=== PATIENT | male | born 1960 | race African-American/Black ===

== ENCOUNTER 2019-03-29 22:22 | Emergency (ER) | payer OTHER ==
[~2019-03-29] VITALS: Ht 162.6 cm; Wt 63.6 kg
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
[2019-03-29 23:12] LABS: BASOPHILS % (AUTO) 0 % (0-10); EOSINOPHILS % (AUTO) 2 % (0-10); HEMATOCRIT 40 % (40-54); HEMOGLOBIN 12.3 G/DL (13.3-17.7); LYMPHOCYTES % (AUTO) 19 % (12-44); MEAN CORPUSCULAR HEMOGLOBIN 21 PG (25-34); MEAN CORPUSCULAR HGB CONC 31 G/DL (32-36); MEAN CORPUSCULAR VOLUME 68 FL (80-99); MEAN PLATELET VOLUME 9.7 FL (7.4-10.4); MONOCYTES % (AUTO) 11 % (0-12); NEUTROPHILS # (AUTO) 3.4 X 10^3 (1.8-7.8); NEUTROPHILS % (AUTO) 68 % (42-75); PLATELET COUNT 285 10^3/uL (130-400); RED CELL DISTRIBUTION WIDTH 17.2 % (10.0-14.5); WHITE BLOOD COUNT 5.1 10^3/uL (4.3-11.0)
[2019-03-29 23:13] LABS: EOSINOPHILS # (AUTO) 0.1 10^3/uL (0.0-0.3); MONOCYTES # (AUTO) 0.6 X 10^3 (0.0-1.0)
[2019-03-29 23:30] LABS: ANISOCYTOSIS SLIGHT; BAND NEUTROPHILS 1 %; BASOPHILS % (MANUAL) 0 %; EOSINOPHILS % (MANUAL) 3 %; HYPOCHROMASIA MODERATE; LYMPHOCYTES % (MANUAL) 22 %; MONOCYTES % (MANUAL) 8 %; NEUTROPHILS % (MANUAL) 66 %
[2019-03-29 23:31] LABS: ALANINE AMINOTRANSFERASE 13 U/L (0-55); ALBUMIN 4.3 GM/DL (3.2-4.5); ALKALINE PHOSPHATASE 58 U/L (40-136); BILIRUBIN,TOTAL 0.2 MG/DL (0.1-1.0); BUN/CREATININE RATIO 11; CALCIUM 9.5 MG/DL (8.5-10.1); CARBON DIOXIDE 21 MMOL/L (21-32); CHLORIDE 99 MMOL/L (98-107); CREATININE SERUM 2.02 MG/DL (0.60-1.30); GFR ESTIMATED 34; GLUCOSE 110 MG/DL (70-105); MICROCYTOSIS MODERATE; POTASSIUM 3.9 MMOL/L (3.6-5.0); SODIUM 136 MMOL/L (135-145); TOTAL PROTEIN 6.8 GM/DL (6.4-8.2)
[2019-03-29 23:45] VITALS: BP 142/89
--- NOTE | 2019-03-30 06:45 | Diagnostic Imaging Report ---
INDICATION: Chest pain COMPARISON: None. FINDINGS: Single view chest demonstrates clear lungs bilaterally. The heart is normal. There is no pneumothorax. Osseous structures are normal. IMPRESSION: Negative chest. Dictated by: Dictated on workstation # [id number]
== END 2019-03-29 23:45 | disposition home or self-care (01) ==
LOC: ER FS 22:25
DX: R07.89 Other chest pain (principal); I10 Essential (primary) hypertension; F17.210 Nicotine dependence, cigarettes, uncomplicated; Y35.831A Legal intervention involving a conducted energy device, law enforcement official injured, initial encounter
CPT/HCPCS: 36415; 71045; 80053; 84484; 85007; 85027; 93005

== ENCOUNTER 2020-03-04 16:01 | Emergency (ER) | payer OTHER ==
[~2020-03-04] VITALS: Ht 167.7 cm; Wt 80.0 kg
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
[2020-03-04 16:30] LABS: HEMATOCRIT 39 % (40-54); HEMOGLOBIN 12.3 G/DL (13.3-17.7); MEAN CORPUSCULAR HEMOGLOBIN 21 PG (25-34); MEAN CORPUSCULAR HGB CONC 31 G/DL (32-36); MEAN CORPUSCULAR VOLUME 68 FL (80-99); WHITE BLOOD COUNT 4.6 10^3/uL (4.3-11.0)
[2020-03-04] MEDS ORDERED: methylPREDNISolone 125 MG (Solu-MEDROL) VIAL IM ONE (16:30)
[2020-03-04 16:31] LABS: BASOPHILS % (AUTO) 0 % (0-10); EOSINOPHILS # (AUTO) 0.1 10^3/uL (0.0-0.3); EOSINOPHILS % (AUTO) 2 % (0-10); LYMPHOCYTES # (AUTO) 1.2 X 10^3 (1.0-4.0); LYMPHOCYTES % (AUTO) 29 % (12-44); MEAN PLATELET VOLUME 10.1 FL (7.4-10.4); MONOCYTES # (AUTO) 0.5 X 10^3 (0.0-1.0); MONOCYTES % (AUTO) 10 % (0-12); NEUTROPHILS # (AUTO) 2.8 X 10^3 (1.8-7.8); NEUTROPHILS % (AUTO) 61 % (42-75); PLATELET COUNT 338 10^3/uL (130-400)
--- NOTE | 2020-03-04 16:36 | Diagnostic Imaging Report ---
INDICATION: Shortness of breath. EXAMINATION: Frontal chest obtained at 04:18 p.m. and compared to 03/29/2019. FINDINGS: Heart and mediastinal silhouette are normal in appearance. There is hyperinflation. There is no pneumothorax or pleural fluid. IMPRESSION: Hyperinflation with no acute process in the chest. Dictated by: Dictated on workstation # [id number]
[2020-03-04 16:50] LABS: FIBRIN DEGRADATION PRODUCTS 0.21 UG/ML (0.00-0.49); PROTHROMBIN TIME PATIENT 13.4 SEC (12.2-14.7)
[2020-03-04 16:56] LABS: ALANINE AMINOTRANSFERASE 17 U/L (0-55); ALKALINE PHOSPHATASE 72 U/L (40-136); BILIRUBIN,TOTAL 0.4 MG/DL (0.1-1.0); BUN/CREATININE RATIO 13; CALCIUM 9.3 MG/DL (8.5-10.1); CARBON DIOXIDE 24 MMOL/L (21-32); CHLORIDE 103 MMOL/L (98-107); CREATININE SERUM 1.44 MG/DL (0.60-1.30); GFR ESTIMATED 60; GLUCOSE 189 MG/DL (70-105); POTASSIUM 3.9 MMOL/L (3.6-5.0); SODIUM 139 MMOL/L (135-145)
[2020-03-04 16:57] LABS: ALBUMIN 4.6 GM/DL (3.2-4.5); TOTAL PROTEIN 7.6 GM/DL (6.4-8.2)
[2020-03-04] MEDS ORDERED: RT-ALBUINH IH (17:22)
[2020-03-04] MEDS ORDERED: PRD20T PO (17:22)
[2020-03-04 17:31] VITALS: BP 125/68
== END 2020-03-04 17:28 | disposition home or self-care (01) ==
LOC: EDUNIT# 16:01 → ER FS 16:02
DX: J98.01 Acute bronchospasm (principal); R06.00 Dyspnea, unspecified; N28.9 Disorder of kidney and ureter, unspecified; I25.2 Old myocardial infarction; F17.210 Nicotine dependence, cigarettes, uncomplicated
CPT/HCPCS: 36415; 71045; 80053; 83880; 84484; 85025; 85379; 85610; 85730

== ENCOUNTER 2020-07-04 13:49 | Emergency (ER) | payer SELFPAY ==
[~2020-07-04] VITALS: Ht 167.7 cm; Wt 65.7 kg
[~2020-07-04 13:49] MED LIST: PRD20T PO; RT-ALBUINH IH
[2020-07-04] MEDS: NS IV ONE ×2 (14:40→14:41)
--- NOTE | 2020-07-04 14:49 | Diagnostic Imaging Report ---
INDICATION: Cough and shortness of air. Time of exam 2:32 PM Correlation is made with prior chest 03/04/2020. The heart size is normal. The pulmonary vascularity is unremarkable. The lungs are clear. No infiltrate, effusion or pneumothorax is detected. Impression: No acute cardiopulmonary process is detected. Dictated by: Dictated on workstation # [id number]
[2020-07-04 14:51] LABS: HEMATOCRIT 41 % (40-54); HEMOGLOBIN 12.9 G/DL (13.3-17.7); MEAN CORPUSCULAR HEMOGLOBIN 21 PG (25-34); MEAN CORPUSCULAR HGB CONC 31 G/DL (32-36); MEAN CORPUSCULAR VOLUME 69 FL (80-99); WHITE BLOOD COUNT 4.4 10^3/uL (4.3-11.0)
[2020-07-04 14:52] LABS: BASOPHILS % (AUTO) 1 % (0-10); EOSINOPHILS # (AUTO) 0.4 10^3/uL (0.0-0.3); EOSINOPHILS % (AUTO) 8 % (0-10); LYMPHOCYTES % (AUTO) 24 % (12-44); MEAN PLATELET VOLUME 9.7 FL (7.4-10.4); MONOCYTES # (AUTO) 0.4 X 10^3 (0.0-1.0); MONOCYTES % (AUTO) 8 % (0-12); NEUTROPHILS # (AUTO) 2.6 X 10^3 (1.8-7.8); NEUTROPHILS % (AUTO) 59 % (42-75); PLATELET COUNT 303 10^3/uL (130-400)
[2020-07-04 15:10] LABS: BUN/CREATININE RATIO 14; CARBON DIOXIDE 28 MMOL/L (21-32); CHLORIDE 104 MMOL/L (98-107); GFR ESTIMATED > 60; POTASSIUM 4.2 MMOL/L (3.6-5.0); SODIUM 139 MMOL/L (135-145)
[2020-07-04 15:11] LABS: ALANINE AMINOTRANSFERASE 18 U/L (0-55); ALBUMIN 4.1 GM/DL (3.2-4.5); ALKALINE PHOSPHATASE 71 U/L (40-136); BILIRUBIN,TOTAL 0.3 MG/DL (0.1-1.0); CALCIUM 8.9 MG/DL (8.5-10.1); GLUCOSE 193 MG/DL (70-105); TOTAL PROTEIN 6.8 GM/DL (6.4-8.2)
--- NOTE | 2020-07-04 15:35 | ED General ---
General Chief Complaint: Respiratory Problems Stated Complaint: COUGH,SOA,FEVER Nursing Triage Note: Patient presents to ED reporting "COVID sx's". Pt reports arrested last night and having hacky productive cough so alf staff swabbed his nares and then he was released from alf just [employer] here. Patient states the [employer] drove him to ED. Pt reports he has been coughing since Wednesday, thinks he has had low grade fevers, and production of clear phlegm. Nursing Sepsis Screen: No Definite Risk Source of Information: Patient History of Present Illness Date Seen by Provider: Jul 04, 2020 Time Seen by Provider: 14:00 Initial Comments Patient is a 60-year-old -[place] male who presents with cough, sore throat, body aches and headaches for the past 3 days. Patient with low-grade temperature of 100. He was picked up by local police for allegedly having drugs in his car and tested for Covid at the alf. The patient was subsequently released after being booked due to his persistent cough. Covid results are still pending. Patient denies dizziness lightheadedness, shortness of breath, wheezing, colored phlegm production, chest pain, palpitations. Denies nausea vomiting, sweats. Reports generalized malaise and fatigue and body aches. No other acute symptoms or complaints. No medications or therapies taken prior to ED arrival. History of methamphetamine and alcohol abuse Timing/Duration: 4-5 Days Modifying Factors: improves with Other Associated Systoms: Other Allergies and Home Medications Allergies Coded Allergies: No Known Drug Allergies (Unverified , 03/29/19) Home Medications No Active Prescriptions or Reported Meds Patient Home Medication List Home Medication List Reviewed: Yes Review of Systems Review of Systems Constitutional: see HPI EENTM: see HPI Respiratory: see HPI Cardiovascular: see HPI Gastrointestinal: see HPI Musculoskeletal: see HPI Skin: see HPI Psychiatric/Neurological: See HPI Hematologic/Lymphatic: See HPI Immunological/Allergic: see HPI All Other Systems Reviewed Negative Unless Noted: Yes Past Wvrnsma-Pxfjfd-Nuwmsx Hx Past Med/Social Hx: Reviewed Nursing Past Med/Soc Hx Patient Social History Alcohol Use: Regular Use Alcohol Beverage of Choice: Whiskey Drug of Choice: Meth Smoking Status: Current Someday Smoker Type Used: Cigarettes 2nd Hand Smoke Exposure: No Recent Infectious Disease Expo: No Recent Hopitalizations: No Seasonal Allergies Seasonal Allergies: No Past Medical History Surgeries: No Respiratory: No Cardiac: Yes Heart Attack, Hypertension Neurological: No Genitourinary: No Gastrointestinal: No Musculoskeletal: No Endocrine: No HEENT: No Cancer: No Psychosocial: No Integumentary: No Blood Disorders: No Physical Exam Vital Signs Vital Signs - First Documented 07/04/20 13:57 Temp 37.1 Pulse 102 Resp 20 B/P (MAP) 156/107 (123) Pulse Ox 98 O2 Delivery Room Air Capillary Refill : Less Than 3 Seconds Height, Weight, BMI Height: '" Weight: lbs. oz. kg; 23.00 BMI Method: General Appearance: Other (Fatigued and weak appearing) Eyes: Bilateral Eye Normal Inspection, Bilateral Eye PERRL, Bilateral Eye EOMI HEENT: PERRL/EOMI, Pharynx Normal, Moist Mucous Membranes Neck: Non Tender, Supple Respiratory: Chest Non Tender, Normal Breath Sounds, Rhonci Cardiovascular: Regular Rate, Rhythm, No Edema Gastrointestinal: Non Tender, Soft Extremity: Normal Capillary Refill Neurologic/Psychiatric: Alert, Oriented x3, Normal Mood/Affect, bioinformaticist II-XII Norm as Tested Lymphatic: No Adenopathy Focused Exam Lactate Level 07/04/20 14:30: Lactic Acid Level 1.43 Lactic Acid Level Laboratory Tests Test 07/04/20 14:30 Lactic Acid Level 1.43 MMOL/L (0.50-2.00) Progress/Results/Core Measures Suspected Sepsis Recent Fever Within 48 Hours: No Infection Criteria Present: Suspected New Infection New/Unexplained Altered Menta: No Sepsis Screen: No Definite Risk SIRS Temperature: Pulse: 102 Respiratory Rate: 20 Laboratory Tests 07/04/20 14:30: White Blood Count 4.4 Blood Pressure 156 /107 Mean: 123 07/04/20 14:30: Lactic Acid Level 1.43 Laboratory Tests 07/04/20 14:30: Creatinine 1.00, Platelet Count 303, Total Bilirubin 0.3 Results/Orders Lab Results Laboratory Tests Test 07/04/20 14:30 Range/Units White Blood Count 4.4 4.3-11.0 10^3/uL Red Blood Count 6.01 H 4.35-5.85 10^6/uL Hemoglobin 12.9 L 13.3-17.7 G/DL Hematocrit 41 40-54 % Mean Corpuscular Volume 69 L 80-99 FL Mean Corpuscular Hemoglobin 21 L 25-34 PG Mean Corpuscular Hemoglobin Concent 31 L 32-36 G/DL Red Cell Distribution Width 15.1 H 10.0-14.5 % Platelet Count 303 130-400 10^3/uL Mean Platelet Volume 9.7 7.4-10.4 FL Immature Granulocyte % (Auto) 0 % Neutrophils (%) (Auto) 59 42-75 % Lymphocytes (%) (Auto) 24 12-44 % Monocytes (%) (Auto) 8 0-12 % Eosinophils (%) (Auto) 8 0-10 % Basophils (%) (Auto) 1 0-10 % Neutrophils # (Auto) 2.6 1.8-7.8 X 10^3 Lymphocytes # (Auto) 1.0 1.0-4.0 X 10^3 Monocytes # (Auto) 0.4 0.0-1.0 X 10^3 Eosinophils # (Auto) 0.4 H 0.0-0.3 10^3/uL Basophils # (Auto) 0.0 0.0-0.1 10^3/uL Immature Granulocyte # (Auto) 0.0 0.0-0.1 10^3/uL Sodium Level 139 135-145 MMOL/L Potassium Level 4.2 3.6-5.0 MMOL/L Chloride Level 104 98-107 MMOL/L Carbon Dioxide Level 28 21-32 MMOL/L Anion Gap 7 5-14 MMOL/L Blood Urea Nitrogen 14 7-18 MG/DL Creatinine 1.00 0.60-1.30 MG/DL Estimat Glomerular Filtration Rate > 60 BUN/Creatinine Ratio 14 Glucose Level 193 H 70-105 MG/DL Lactic Acid Level 1.43 0.50-2.00 MMOL/L Calcium Level 8.9 8.5-10.1 MG/DL Corrected Calcium 8.8 8.5-10.1 MG/DL Total Bilirubin 0.3 0.1-1.0 MG/DL Aspartate Amino Transf (AST/SGOT) 24 5-34 U/L Alanine Aminotransferase (ALT/SGPT) 18 0-55 U/L Alkaline Phosphatase 71 40-136 U/L Total Protein 6.8 6.4-8.2 GM/DL Albumin 4.1 3.2-4.5 GM/DL My Orders Aleta - LIZZETTE ARRIOLA DO Cbc With Automated Diff (07/04/20 14:22) Comprehensive Metabolic Panel (07/04/20 14:22) Blood Culture (07/04/20 14:22) Urinalysis (07/04/20 14:22) Urine Culture (07/04/20 14:22) Chest 1 View Ap/Pa Only (07/04/20 14:22) Ed Iv/Invasive Line Start (07/04/20 14:22) Ed Iv/Invasive Line Start (07/04/20 14:22) Vital Signs Adult Sepsis Patie Q15M (07/04/20 14:22) O2 (07/04/20 14:22) Remove Rings In Anticipation O (07/04/20 14:22) Lactic Acid Analyzer (07/04/20 14:22) Ns Iv 1000 Ml (Sodium Chloride 0.9%) (07/04/20 14:30) Medications Given in ED Current Medications Medications Dose Ordered Sig/Hector Route Start Time Stop Time Status Last Admin Dose Admin Sodium Chloride 1,971 ml @ 1,971 mls/hr ONCE ONCE IV 07/04/20 14:30 07/04/20 15:29 07/04/20 14:40 1,971 MLS/HR Vital Signs/I&O 07/04/20 13:57 Temp 37.1 Pulse 102 Resp 20 B/P (MAP) 156/107 (123) Pulse Ox 98 O2 Delivery Room Air Capillary Refill : Less Than 3 Seconds Blood Pressure Mean: 123 Departure Communication (Admissions) Chest x-ray: No acute cardiopulmonary disease per radiology report. Patient with nonspecific URI symptoms concerning for possible Covid or influenza. No respiratory compromise. Stable vital signs with the exception of longstanding untreated hypertension. Patient is unsure of which medications he is on because he does not take them. Will prescribe lisinopril with PCP follow- up. Work note offered. Recommendations are for watchful waiting, close monitoring and PCP follow-up early next week after symptoms resolved. Return precautions reviewed. Patient verbalizes understanding agreement discharge instructions prior to departure Impression Primary Impression: Viral syndrome Additional Impressions: Hypertension H/O medication noncompliance Disposition: HOME, SELF-CARE Condition: Stable Departure-Patient Inst. Decision time for Depature: 15:35 Referrals: NO,LOCAL PHYSICIAN (PCP/Family) Primary Care Physician Patient Instructions: Viral Upper Respiratory Infection, Adult (DC), High Blood Pressure (DC) Add. Discharge Instructions: You were evaluated in the emergency department for flulike symptoms with body aches. His symptoms are consistent with Covid. Please stay home and follow strict quarantine pending Covid results from local alf. In the meantime, take Mucinex 1200 mg twice daily and start taking lisinopril for treatment of hypertension. Follow-up with your PCP in 7 to 8 days for reevaluation. Return to the ED if new or worsening symptoms. All discharge instructions reviewed with patient and/or family. Voiced understanding. Scripts Guaifenesin (Mucinex) 1,200 Mg Tab.er.12h 1200 MG PO BID, #20 TAB Prov: LIZZETTE ARRIOLA DO 07/04/20 Lisinopril (Lisinopril) 20 Mg Tablet 20 MG PO DAILY, #30 TAB Prov: LIZZETTE ARRIOLA DO 07/04/20 LIZZETTE ARRIOLA DO Jul 04, 2020 15:35
[2020-07-04] MEDS ORDERED: LISI20TA26 PO (15:37)
[2020-07-04] MEDS ORDERED: GUAI120013 PO (15:38)
[2020-07-04 15:40] VITALS: BP 160/114
== END 2020-07-04 15:40 | disposition home or self-care (01) ==
LOC: EDUNIT# 13:49 → ER FS 13:52
DX: B34.9 Viral infection, unspecified (principal); I10 Essential (primary) hypertension; I25.2 Old myocardial infarction; F17.210 Nicotine dependence, cigarettes, uncomplicated; Z91.19 Patient's noncompliance with other medical treatment and regimen
CPT/HCPCS: 36415; 71045; 80053; 83605; 85025; 87040

== ENCOUNTER → 2020-07-08 | Outpatient (CLI) | payer SELFPAY ==
[~2020-07-08] MED LIST changes: +GUAI120013 PO; +LISI20TA26 PO
[2020-07-08 10:40] LABS: HEMATOCRIT 43 % (40-54); HEMOGLOBIN 13.1 G/DL (13.3-17.7); MEAN CORPUSCULAR HEMOGLOBIN 21 PG (25-34); MEAN CORPUSCULAR HGB CONC 31 G/DL (32-36); MEAN CORPUSCULAR VOLUME 70 FL (80-99); WHITE BLOOD COUNT 3.6 10^3/uL (4.3-11.0)
[2020-07-08 10:41] LABS: BASOPHILS % (AUTO) 1 % (0-10); EOSINOPHILS # (AUTO) 0.4 10^3/uL (0.0-0.3); EOSINOPHILS % (AUTO) 10 % (0-10); LYMPHOCYTES % (AUTO) 29 % (12-44); MEAN PLATELET VOLUME 9.6 FL (7.4-10.4); MONOCYTES # (AUTO) 0.4 X 10^3 (0.0-1.0); MONOCYTES % (AUTO) 10 % (0-12); NEUTROPHILS # (AUTO) 1.8 X 10^3 (1.8-7.8); NEUTROPHILS % (AUTO) 50 % (42-75); PLATELET COUNT 302 10^3/uL (130-400)
[2020-07-08 11:36] LABS: ALANINE AMINOTRANSFERASE 26 U/L (0-55); ALBUMIN 4.2 GM/DL (3.2-4.5); ALKALINE PHOSPHATASE 70 U/L (40-136); BILIRUBIN,TOTAL 0.4 MG/DL (0.1-1.0); BUN/CREATININE RATIO 13; CALCIUM 8.9 MG/DL (8.5-10.1); CARBON DIOXIDE 26 MMOL/L (21-32); CHLORIDE 102 MMOL/L (98-107); CREATININE SERUM 1.01 MG/DL (0.60-1.30); GFR ESTIMATED > 60; GLUCOSE 154 MG/DL (70-105); POTASSIUM 3.9 MMOL/L (3.6-5.0); SODIUM 139 MMOL/L (135-145); TOTAL PROTEIN 6.8 GM/DL (6.4-8.2)
== END ==
LOC: LAB FS 10:07
PROVIDERS: ATTEND Nurse Practitioner Family
DX: Z87.898 Personal history of other specified conditions (principal)
CPT/HCPCS: 36415; 80053; 83880; 84484; 85025

== ENCOUNTER 2020-08-18 08:13 | Emergency (ER) | payer SELFPAY ==
[~2020-08-18] VITALS: Ht 175 cm; Wt 72.0 kg
[2020-08-18] MEDS ORDERED: methylPREDNISolone 125 MG (Solu-MEDROL) VIAL IVP STA (08:28)
[2020-08-18] MEDS ORDERED: RT-ALBUTEROL/IPRATROPIUM 3 ML (DUONEB) VIAL INH STA (08:28)
[2020-08-18] MEDS ORDERED: KETOROLAC 30 MG/ML VIAL IVP STA (08:32)
[2020-08-18 08:38] LABS: BASOPHILS % (AUTO) 1 % (0-10); EOSINOPHILS # (AUTO) 0.4 10^3/uL (0.0-0.3); EOSINOPHILS % (AUTO) 10 % (0-10); HEMATOCRIT 40 % (40-54); HEMOGLOBIN 12.7 G/DL (13.3-17.7); LYMPHOCYTES # (AUTO) 1.2 X 10^3 (1.0-4.0); LYMPHOCYTES % (AUTO) 29 % (12-44); MEAN CORPUSCULAR HEMOGLOBIN 22 PG (25-34); MEAN CORPUSCULAR HGB CONC 31 G/DL (32-36); MEAN CORPUSCULAR VOLUME 69 FL (80-99); MEAN PLATELET VOLUME 9.3 FL (7.4-10.4); MONOCYTES # (AUTO) 0.4 X 10^3 (0.0-1.0); MONOCYTES % (AUTO) 10 % (0-12); NEUTROPHILS # (AUTO) 2.2 X 10^3 (1.8-7.8); NEUTROPHILS % (AUTO) 50 % (42-75); PLATELET COUNT 311 10^3/uL (130-400); WHITE BLOOD COUNT 4.3 10^3/uL (4.3-11.0)
--- NOTE | 2020-08-18 08:40 | ED Dyspnea ---
General Chief Complaint: Respiratory Problems Stated Complaint: SOB Nursing Triage Note: PT REPORTS HE BECAME SHORT OF BREATH LAST PM AFTER WORKING. HE HAS A HX OF ASTHMA AND HAS AN INHALER. 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 SATS WERE 97% PRIOR TO THE B/T. REPORTS HE HAS BEEN COUGHING LATELY AND SPITTING UP PHLEGM. Source of Information: Patient History of Present Illness Date Seen by Provider: Aug 18, 2020 Time Seen by Provider: 08:19 Initial Comments 60-year-old male presenting by EMS from home having complaints of short of breath and cough. He states since last night he has been coughing and feeling more short of breath. He ran out of his inhaler last night. He reports a history of asthma and breathing problems. He also has high blood pressure. He follows with nurse practitioner Federico from [facility]. He denies fever or chills, chest pain, nausea, vomiting, abdominal pain, body aches. He does have a headache. He has been coughing up some phlegm but only occasionally been able to spit it out. He states he was having troubles all night but then this morning decided to call 911. Timing/Duration: Waxing and Waning, Other (Since last night) Severity: Moderate Activities at Onset: None Prior Episodes/Possible Cause: Chronic Episodes Modifying Factors: Improves With Albuterol Inhaler (Ran out of his inhaler without), Improves With Albuterol Nebulizer (Treatment by EMS helped); Worse With Coughing Associated Symptoms: Cough Allergies and Home Medications Allergies Coded Allergies: No Known Drug Allergies (Unverified , 03/29/19) Home Medications Albuterol Sulfate 1 Puff Puff, 2 PUFF IH Q4H PRN for SHORTNESS OF BREATH 1 PUFF = 90 MCG Prescribed by: NESTOR MILLS on 08/18/20927 Azithromycin 250 Mg Tablet, 250 MG PO DAILY Prescribed by: NESTOR MILLS on 08/18/20927 Guaifenesin 1,200 Mg Tab.er.12h, 1,200 MG PO BID Prescribed by: LIZZETTE ARRIOLA on 07/04/201537 Lisinopril 20 Mg Tablet, 20 MG PO DAILY Prescribed by: LIZZETTE ARRIOLA on 07/04/20 153 Prednisone 20 Mg Tab, 40 MG PO DAILY Prescribed by: NESTOR MILLS on 08/18/20927 Patient Home Medication List Home Medication List Reviewed: Yes Review of Systems Review of Systems Constitutional: No chills, No fever EENTM: nose congestion Respiratory: see HPI, cough, phlegm, short of breath; No stridor; wheezing Cardiovascular: No chest pain, No edema Gastrointestinal: No nausea, No vomiting Genitourinary: No dysuria Musculoskeletal: No joint pain, No muscle pain Skin: No rash Psychiatric/Neurological: Headache; Denies Numbness, Denies Paresthesia Hematologic/Lymphatic: Denies Blood Clots Past Apdbknh-Hpdqfk-Hqivqn Hx Past Med/Social Hx: Reviewed Nursing Past Med/Soc Hx Patient Social History Alcohol Use: Occasionally Uses Number of Drinks Today: GG Alcohol Beverage of Choice: Whiskey Drug of Choice: Meth Hx Type Used: Cigarettes 2nd Hand Smoke Exposure: No Recent Infectious Disease Expo: No Recent Hopitalizations: No Seasonal Allergies Seasonal Allergies: No Past Medical History Surgeries: No Respiratory: No Cardiac: Yes Heart Attack, Hypertension Neurological: No Genitourinary: No Gastrointestinal: No Musculoskeletal: No Endocrine: No HEENT: No Cancer: No Psychosocial: No Integumentary: No Blood Disorders: No Physical Exam Vital Signs Vital Signs - First Documented 08/18/20 08:20 Temp 37.0 Pulse 85 Resp 20 B/P (MAP) 125/87 (100) Pulse Ox 95 O2 Delivery Room Air Capillary Refill : Less Than 3 Seconds Height, Weight, BMI Height: '" Weight: lbs. oz. kg; 23.00 BMI Method: General Appearance: No Apparent Distress, WD/WN HEENT: PERRL/EOMI, Pharynx Normal Neck: Full Range of Motion, Normal Inspection, Non Tender, Supple Respiratory: Chest Non Tender, No Accessory Muscle Use, No Respiratory Distress, Decreased Breath Sounds, Rhonci; No Stridor; Wheezing Cardiovascular: Regular Rate, Rhythm, No Murmur, Normal Peripheral Pulses Gastrointestinal: Normal Bowel Sounds, No Pulsatile Mass, Non Tender, Soft Rectal: Deferred Extremity: Normal Capillary Refill, Normal Inspection, Normal Range of Motion, Non Tender, No Pedal Edema Neurologic/Psychiatric: Alert, Oriented x3, No Motor/Sensory Deficits Skin: Normal Color, Warm/Dry Progress/Results/Core Measures Results/Orders Lab Results Laboratory Tests Test 08/18/20 08:20 Range/Units White Blood Count 4.3 4.3-11.0 10^3/uL Red Blood Count 5.85 4.35-5.85 10^6/uL Hemoglobin 12.7 L 13.3-17.7 G/DL Hematocrit 40 40-54 % Mean Corpuscular Volume 69 L 80-99 FL Mean Corpuscular Hemoglobin 22 L 25-34 PG Mean Corpuscular Hemoglobin Concent 31 L 32-36 G/DL Red Cell Distribution Width 16.6 H 10.0-14.5 % Platelet Count 311 130-400 10^3/uL Mean Platelet Volume 9.3 7.4-10.4 FL Immature Granulocyte % (Auto) 0 % Neutrophils (%) (Auto) 50 42-75 % Lymphocytes (%) (Auto) 29 12-44 % Monocytes (%) (Auto) 10 0-12 % Eosinophils (%) (Auto) 10 0-10 % Basophils (%) (Auto) 1 0-10 % Neutrophils # (Auto) 2.2 1.8-7.8 X 10^3 Lymphocytes # (Auto) 1.2 1.0-4.0 X 10^3 Monocytes # (Auto) 0.4 0.0-1.0 X 10^3 Eosinophils # (Auto) 0.4 H 0.0-0.3 10^3/uL Basophils # (Auto) 0.0 0.0-0.1 10^3/uL Immature Granulocyte # (Auto) 0.0 0.0-0.1 10^3/uL Sodium Level 138 135-145 MMOL/L Potassium Level 3.8 3.6-5.0 MMOL/L Chloride Level 103 98-107 MMOL/L Carbon Dioxide Level 27 21-32 MMOL/L Anion Gap 8 5-14 MMOL/L Blood Urea Nitrogen 11 7-18 MG/DL Creatinine 0.94 0.60-1.30 MG/DL Estimat Glomerular Filtration Rate > 60 BUN/Creatinine Ratio 12 Glucose Level 119 H 70-105 MG/DL Calcium Level 9.0 8.5-10.1 MG/DL Corrected Calcium 8.8 8.5-10.1 MG/DL Total Bilirubin 0.3 0.1-1.0 MG/DL Aspartate Amino Transf (AST/SGOT) 27 5-34 U/L Alanine Aminotransferase (ALT/SGPT) 20 0-55 U/L Alkaline Phosphatase 71 40-136 U/L C-Reactive Protein < 0.30 <0.50 MG/DL Total Protein 7.0 6.4-8.2 GM/DL Albumin 4.2 3.2-4.5 GM/DL My Orders Orders - NESTOR MILLS MD Cbc With Automated Diff (08/18/20 08:28) Comprehensive Metabolic Panel (08/18/20 08:28) Chest 1 View Ap/Pa Only (08/18/20 08:28) Ed Iv/Invasive Line Start (08/18/20 08:28) Sputum Culture (08/18/20 08:28) Monitor-Rhythm Ecg Trace Only (08/18/20 08:28) Crp Fs (08/18/20 08:28) Methylprednisolone Sod Succ (Solu-Medrol (08/18/20 08:28) Albuterol/Ipra Inhalation Soln (Duoneb I (08/18/20 08:28) Svn Small Volume Nebulizer (08/18/20 08:28) Ketorolac Injection (Toradol Injection) (08/18/20 08:32) Ceftriaxone For Iv Use (Rocephin For I (08/18/20 09:19) Azithromycin Tablet (Zithromax Tablet) (08/18/20 09:19) Vital Signs/I&O 08/18/20 08/18/20 08/18/20 08:20 08:35 09:30 Temp 37.0 37.0 37.0 Pulse 85 72 Resp 20 20 B/P (MAP) 125/87 (100) 132/86 (100) Pulse Ox 95 96 O2 Delivery Room Air Room Air Blood Pressure Mean: 100 Progress Progress Note #1: Progress Note Obtain basic labs as well as chest x-ray to evaluate for infiltrate or pneumonia. With him running out of his inhaler and working so much this weekend with "good old days" going on this weekend in [place] he likely has been exposed to more allergens. There is also been a weather change. Since he has no fever or chills and no chest pain this is unlikely to be a severe infection. However with him being a smoker he is at risk for atypical infections. For his headache will give a dose of Toradol, Solu-Medrol for his wheezing and rhonchi, a repeat breathing treatment for his shortness of breath. Differential diagnosis includes asthma exacerbation, pneumonia, medication noncompliance, tobacco abuse, bronchitis, allergic rhinitis. Progress Note #2: Time: 08:52 Progress Note CBC stable without acute significant change from prior studies. Chest x-ray shows bibasilar atelectasis or infiltrate new from prior imaging. Progress Note #3: Time: 09:09 Progress Note Chemistry stable without acute significant abnormality and CRP <0.3. With smoking history and having atelectasis vs developing infiltrates will treat with antibiotic and refill inhaler. Counseled to quit smoking and follow up with clinic. Diagnostic Imaging Diagonstic Imaging: Xray Plain Films/CT/US/NM/MRI: chest Comments NAME: [facility]GL[facility]ARRANZA [facility] REC#: [id number] PT STATUS: REG ER : 1960 PHYSICIAN: NESTOR MILLS MD ADMIT DATE: 08/18/20/ER FS Draft Date of Exam:08/18/20 CHEST 1 VIEW AP/PA ONLY EXAM: CHEST 1 VIEW AP/PA ONLY INDICATION: Cough. Shortness of breath. COMPARISON: Chest radiograph 07/04/2020. FINDINGS: Normal heart size and central pulmonary vascularity. Subtle airspace opacities in the lung bases. No pleural effusion or pneumothorax. No acute osseous findings. IMPRESSION: Mild atelectasis or infiltrate in the lung bases is new since the prior. Dictated on workstation # [id number] Dict: 08/18/20 0838 Trans: 08/18/20 0848 ONEIDA [id number] Interpreted by: SUSAN WHALEN MD Electronically signed by: Reviewed: Reviewed by Me Departure Impression Primary Impression: Basal pneumonia Additional Impressions: Shortness of breath Cough in adult Tobacco abuse RBC microcytosis Disposition: HOME, SELF-CARE Condition: Stable Departure-Patient Inst. Decision time for Depature: 09:25 Referrals: [facility] (PCP/Family) Primary Care Physician Patient Instructions: Pneumonia, Adult ED, Cough, Adult ED, Quitting Smoking Add. Discharge Instructions: Take antibiotic until gone to treat for infection in lungs. Stop smoking to help with your breathing Follow up with clinic to refill medicines and ensure your lungs are improving after treatment for infection. Consider taking an iron supplement or multivitamin with iron to help improve your blood count. The clinic may want to do other testing or evaluation for the small size of your red blood cells. Sometimes this is from low vitamins or iron levels but they may want to look for specific cause. All discharge instructions reviewed with patient and/or family. Voiced understanding. Scripts Albuterol Sulfate (PROAIR HFA) 1 Puff Puff 2 PUFF IH Q4H PRN for SHORTNESS OF BREATH for 30 Days, #1 INHALER 0 Refills 1 PUFF = 90 MCG Prov: NESTOR MILLS MD 08/18/20 Prednisone (Prednisone) 20 Mg Tab 40 MG PO DAILY for 5 Days, #10 TAB 0 Refills Prov: NESTOR MILLS MD 08/18/20 Azithromycin (Azithromycin) 250 Mg Tablet 250 MG PO DAILY for pneumonia for 4 Days, #4 TAB 0 Refills Prov: NESTOR MILLS MD 08/18/20 NESTOR MILLS MD Aug 18, 2020 08:40
--- NOTE | 2020-08-18 08:50 | Diagnostic Imaging Report ---
EXAM: CHEST 1 VIEW AP/PA ONLY INDICATION: Cough. Shortness of breath. COMPARISON: Chest radiograph 07/04/2020. FINDINGS: Normal heart size and central pulmonary vascularity. Subtle airspace opacities in the lung bases. No pleural effusion or pneumothorax. No acute osseous findings. IMPRESSION: Mild atelectasis or infiltrate in the lung bases is new since the prior. Dictated by: Dictated on workstation # [id number]
[2020-08-18 08:52] LABS: CARBON DIOXIDE 27 MMOL/L (21-32); CHLORIDE 103 MMOL/L (98-107); POTASSIUM 3.8 MMOL/L (3.6-5.0); SODIUM 138 MMOL/L (135-145)
[2020-08-18 08:53] LABS: ALANINE AMINOTRANSFERASE 20 U/L (0-55); ALBUMIN 4.2 GM/DL (3.2-4.5); ALKALINE PHOSPHATASE 71 U/L (40-136); BILIRUBIN,TOTAL 0.3 MG/DL (0.1-1.0); BUN/CREATININE RATIO 12; CREATININE SERUM 0.94 MG/DL (0.60-1.30); GFR ESTIMATED > 60; GLUCOSE 119 MG/DL (70-105)
[2020-08-18] MEDS ORDERED: cefTRIAXone FOR IV USE 1,000 MG in WATER (STERILE) FOR INJECTION 10 ML IV STA (09:19)
[2020-08-18] MEDS ORDERED: AZITHROMYCIN 250 MG TAB (ZITHROMAX) PO STA (09:19)
[2020-08-18] MEDS ORDERED: RT-ALBUINH IH ×2 (09:27→09:28)
[2020-08-18] MEDS ORDERED: AZIT250T12 PO ×2 (09:27→09:28)
[2020-08-18] MEDS ORDERED: PRD20T PO ×2 (09:27→09:28)
[2020-08-18 09:30] VITALS: BP 132/86
== END 2020-08-18 09:32 | disposition home or self-care (01) ==
LOC: EDUNIT# 08:13 → ER FS 08:19
DX: J18.9 Pneumonia, unspecified organism (principal); R06.02 Shortness of breath; R05 Cough; F17.200 Nicotine dependence, unspecified, uncomplicated; R71.8 Other abnormality of red blood cells; I25.2 Old myocardial infarction; I10 Essential (primary) hypertension; Z79.52 Long term (current) use of systemic steroids; Z79.899 Other long term (current) drug therapy
CPT/HCPCS: 36415; 71045; 80053; 85025; 86141; 93041

== ENCOUNTER → 2020-10-04 | Outpatient (CLI) | payer SELFPAY ==
[~2020-10-04] MED LIST changes: +AZIT250T12 PO
--- NOTE | 2020-10-04 18:29 | Diagnostic Imaging Report ---
EXAMINATION: Chest 2 view HISTORY: COMMUNITY AQUIRED PNEUMONIA COMPARISON: 08/18/2020 FINDINGS: Heart size and pulmonary vasculature are normal. The lungs are clear without consolidation, pleural effusion, or pneumothorax. The osseous structures are intact. IMPRESSION: 1. No acute radiographic abnormality in the chest. Dictated by: Dictated on workstation # [id number]
== END ==
LOC: RAD FS 17:56
PROVIDERS: ATTEND Nurse Practitioner Family
DX: J18.9 Pneumonia, unspecified organism (principal)
CPT/HCPCS: 71046

== ENCOUNTER 2021-03-20 05:20 | Inpatient (IN) | payer SELFPAY ==
[~2021-03-20] VITALS: Ht 167.7 cm; Wt 72.0 kg
[2021-03-20] MEDS ORDERED: methylPREDNISolone 125 MG (Solu-MEDROL) VIAL IVP ONE (05:30)
[2021-03-20] MEDS ORDERED: RT-ALBUTEROL/IPRATROPIUM 3 ML (DUONEB) VIAL INH ONE (05:30)
[2021-03-20 05:58] LABS: HEMATOCRIT 43 % (40-54); HEMOGLOBIN 13.1 g/dL (13.3-17.7); MEAN CORPUSCULAR HEMOGLOBIN 22 pg (25-34); MEAN CORPUSCULAR HGB CONC 30 g/dL (32-36); MEAN CORPUSCULAR VOLUME 71 fL (80-99); WHITE BLOOD COUNT 5.5 10^3/uL (4.3-11.0)
--- NOTE | 2021-03-20 05:58 | Diagnostic Imaging Report ---
INDICATION: Chest pain. Cough. COMPARISON: 10/04/2020 FINDINGS: Two frontal radiographic views of the chest were obtained and demonstrate normal heart size and pulmonary vascularity. The lungs are well aerated and clear. No large pleural effusion or pneumothorax is seen. The visualized osseous structures show no acute abnormalities. IMPRESSION: 1. No acute cardiopulmonary process. Dictated by: Dictated on workstation # [id number]
[2021-03-20 05:59] LABS: BASOPHILS % (AUTO) 0 % (0-10); EOSINOPHILS # (AUTO) 0.1 10^3/uL (0.0-0.3); EOSINOPHILS % (AUTO) 2 % (0-10); LYMPHOCYTES # (AUTO) 0.6 X 10^3 (1.0-4.0); LYMPHOCYTES % (AUTO) 11 % (12-44); MEAN PLATELET VOLUME 9.6 fL (9.0-12.2); MONOCYTES # (AUTO) 0.4 X 10^3 (0.0-1.0); MONOCYTES % (AUTO) 8 % (0-12); NEUTROPHILS # (AUTO) 4.2 X 10^3 (1.8-7.8); NEUTROPHILS % (AUTO) 78 % (42-75); PLATELET COUNT 317 10^3/uL (130-400)
[2021-03-20] MEDS ORDERED: HYDROcodone/APAP 5 MG/325 MG (LORTAB) TAB PO ONE (06:15)
[2021-03-20 06:17] LABS: BUN/CREATININE RATIO 9; CALCIUM 8.6 MG/DL (8.5-10.1); CARBON DIOXIDE 26 MMOL/L (21-32); CHLORIDE 101 MMOL/L (98-107); CREATININE SERUM 1.02 MG/DL (0.60-1.30); GFR ESTIMATED 90; GLUCOSE 161 MG/DL (70-105); POTASSIUM 3.3 MMOL/L (3.6-5.0); SODIUM 138 MMOL/L (135-145)
[2021-03-20 06:18] LABS: ALANINE AMINOTRANSFERASE 20 U/L (0-55); ALBUMIN 4.5 GM/DL (3.2-4.5); ALKALINE PHOSPHATASE 108 U/L (40-136); TOTAL PROTEIN 7.5 GM/DL (6.4-8.2)
[2021-03-20 06:19] LABS: BILIRUBIN,TOTAL < 0.2 MG/DL (0.1-1.0)
--- NOTE | 2021-03-20 06:32 | ED Respiratory ---
General Chief Complaint: Respiratory Problems Stated Complaint: COPD EXACERBATION Source: patient Exam Limitations: no limitations History of Present Illness Date Seen by Provider: Mar 20, 2021 Time Seen by Provider: 05:45 Initial Comments Patient is a 60-year-old -[place] male with history of COPD presents with acute shortness of breath and coughing episode starting 2 days ago. Patient noted be hypoxic on EMS arrival requiring 3 L of oxygen to meet sa turation greater than 90%. No fever chills, nausea vomiting or sweats. Reports chest tightness and headache secondary to cough. Patient had Covid several months ago and states his symptoms feel similar. He has previously been prescribed oxygen for home use which he never obtained. He is a current half pack a day smoker. Timing/Duration: yesterday Severity: moderate Prior Episodes/Possible Cause: other Modifying Factors: Improves With Other Associated Symptoms: other Allergies and Home Medications Allergies Coded Allergies: No Known Drug Allergies (Unverified , 03/29/19) Patient Home Medication List Home Medication List Reviewed: Yes Albuterol Sulfate (Proair Hfa) 1 Puff Puff, 2 PUFF IH Q4H PRN for SHORTNESS OF BREATH Prescribed by: NESTOR MILLS on 08/18/20927 Azithromycin (Azithromycin) 250 Mg Tablet, 250 MG PO DAILY Prescribed by: NESTOR MILLS on 08/18/20927 Guaifenesin (Mucinex) 1,200 Mg Tab.er.12h, 1,200 MG PO BID Prescribed by: LIZZETTE ARRIOLA on 07/04/20 153 Lisinopril (Lisinopril) 20 Mg Tablet, 20 MG PO DAILY Prescribed by: LIZZETTE ARRIOLA on 07/04/20 153 Prednisone (Prednisone) 20 Mg Tab, 40 MG PO DAILY Prescribed by: NESTOR MILLS on 08/18/20927 Review of Systems Review of Systems Constitutional: see HPI EENTM: see HPI Respiratory: see HPI Cardiovascular: see HPI Gastrointestinal: see HPI Genitourinary: see HPI Musculoskeletal: see HPI Skin: see HPI Psychiatric/Neurological: See HPI Hematologic/Lymphatic: See HPI Immunological/Allergic: see HPI Past Jfuoops-Nogyms-Blzihr Hx Patient Social History Tobacco Use?: Yes Seasonal Allergies Seasonal Allergies: No Past Medical History Surgeries: No Respiratory: No Cardiac: Yes Heart Attack, Hypertension Neurological: No Genitourinary: No Gastrointestinal: No Musculoskeletal: No Endocrine: No HEENT: No Cancer: No Psychosocial: No Integumentary: No Blood Disorders: No Physical Exam Capillary Refill : Height: '" Weight: lbs. oz. kg; 23.00 BMI Method: General Appearance: mild distress Eyes: Bilateral Eye Normal Inspection, Bilateral Eye PERRL, Bilateral Eye EOMI HEENT: PERRL/EOMI Neck: non-tender, full range of motion, supple Respiratory: chest non-tender, decreased breath sounds, rhonchi Cardiovascular: normal peripheral pulses, regular rate, rhythm Gastrointestinal: non tender, soft Extremities: non-tender Neurologic/Psychiatric: living supervisor II-XII nml as tested, alert, oriented x 3 Skin: normal color Focused Exam Sepsis Stage: Ruled Out Progress/Results/Core Measures Suspected Sepsis SIRS Temperature: Pulse: Respiratory Rate: Laboratory Tests 03/20/21 05:30: White Blood Count 5.5 Blood Pressure / Mean: Laboratory Tests 03/20/21 05:30: Creatinine 1.02, Platelet Count 317, Total Bilirubin < 0.2 Results/Orders Lab Results Laboratory Tests Test 03/20/21 05:30 Range/Units White Blood Count 5.5 4.3-11.0 10^3/uL Red Blood Count 6.08 H 4.30-5.52 10^6/uL Hemoglobin 13.1 L 13.3-17.7 g/dL Hematocrit 43 40-54 % Mean Corpuscular Volume 71 L 80-99 fL Mean Corpuscular Hemoglobin 22 L 25-34 pg Mean Corpuscular Hemoglobin Concent 30 L 32-36 g/dL Red Cell Distribution Width 15.4 H 10.0-14.5 % Platelet Count 317 130-400 10^3/uL Mean Platelet Volume 9.6 9.0-12.2 fL Immature Granulocyte % (Auto) 0 % Neutrophils (%) (Auto) 78 H 42-75 % Lymphocytes (%) (Auto) 11 L 12-44 % Monocytes (%) (Auto) 8 0-12 % Eosinophils (%) (Auto) 2 0-10 % Basophils (%) (Auto) 0 0-10 % Neutrophils # (Auto) 4.2 1.8-7.8 X 10^3 Lymphocytes # (Auto) 0.6 L 1.0-4.0 X 10^3 Monocytes # (Auto) 0.4 0.0-1.0 X 10^3 Eosinophils # (Auto) 0.1 0.0-0.3 10^3/uL Basophils # (Auto) 0.0 0.0-0.1 10^3/uL Immature Granulocyte # (Auto) 0.0 0.0-0.1 10^3/uL Sodium Level 138 135-145 MMOL/L Potassium Level 3.3 L 3.6-5.0 MMOL/L Chloride Level 101 98-107 MMOL/L Carbon Dioxide Level 26 21-32 MMOL/L Anion Gap 11 5-14 MMOL/L Blood Urea Nitrogen 9 7-18 MG/DL Creatinine 1.02 0.60-1.30 MG/DL Estimat Glomerular Filtration Rate 90 BUN/Creatinine Ratio 9 Glucose Level 161 H 70-105 MG/DL Calcium Level 8.6 8.5-10.1 MG/DL Corrected Calcium 8.2 L 8.5-10.1 MG/DL Total Bilirubin < 0.2 0.1-1.0 MG/DL Aspartate Amino Transf (AST/SGOT) 26 5-34 U/L Alanine Aminotransferase (ALT/SGPT) 20 0-55 U/L Alkaline Phosphatase 108 40-136 U/L Troponin I < 0.30 <0.30 NG/ML Pro-B-Type Natriuretic Peptide 52.5 <75.0 PG/ML Total Protein 7.5 6.4-8.2 GM/DL Albumin 4.5 3.2-4.5 GM/DL My Orders Orders - LIZZETTE ARRIOLA DO Cbc With Automated Diff (03/20/21 05:27) Comprehensive Metabolic Panel (03/20/21 05:27) Troponin I Fs (03/20/21 05:27) Probnp Fs (03/20/21 05:27) Chest 1 View Ap/Pa Only (03/20/21 05:27) Ekg-Prn For Chest Pain Or Rhyt (03/20/21 05:27) Methylprednisolone Sod Succ (Solu-Medrol (03/20/21 05:30) Albuterol/Ipra Inhalation Soln (Duoneb I (03/20/21 05:30) Svn Small Volume Nebulizer (03/20/21 05:28) Covid 19 Inhouse Test (03/20/21 05:28) Isolation Central Supply Req (03/20/21 05:28) Hydrocodone/Apap 5/325 Tablet (Lortab 5 (03/20/21 06:15) Medications Given in ED Current Medications Medications Dose Ordered Sig/Hector Route Start Time Stop Time Status Last Admin Dose Admin Acetaminophen/ Hydrocodone Bitart 1 ea ONCE ONCE PO 03/20/21 06:15 03/20/21 06:16 DC 03/20/21 06:32 1 EA Albuterol/ Ipratropium 6 ml ONCE ONCE INH 03/20/21 05:30 03/20/21 05:31 DC 03/20/21 05:43 6 ML Methylprednisolone Sodium Succinate 62.5 mg ONCE ONCE IVP 03/20/21 05:30 03/20/21 05:31 DC 03/20/21 05:43 62.5 MG Vital Signs/I&O Capillary Refill : Departure Communication (Admissions) EKG: Normal sinus rhythm, no acute ST-T wave changes. Chest x-ray: No acute cardiopulmonary disease per radiology report. Acute respiratory failure with hypoxia requiring 4 L to maintain saturation greater than 92%. Steroids, nebs given with clinical improvement. Patient accepted to [facility] per Dr. Phelan. Impression Primary Impression: Acute respiratory failure with hypoxia Additional Impression: COPD exacerbation Disposition: ADMITTED INPATIENT Condition: Stable Admissions Decision to Admit Reason: Admit from ER (General) Decision to Admit/Date: Mar 20, 2021 Time/Decision to Admit Time: 06:30 Departure-Patient Inst. Decision time for Depature: 06:46 Referrals: [facility] (PCP/Family) Primary Care Physician LIZZETTE ARRIOLA DO Mar 20, 2021 06:32
[2021-03-20 11:57] VITALS: BP 146/94
[2021-03-20 12:21] VITALS: BP 133/82
[2021-03-20] MEDS ORDERED: RT-ALBUTEROL SULF 2.5 MG/3 ML PRE-MIX VIAL INH SCH (14:00)
[2021-03-20] MEDS ORDERED: RT-ALBUTEROL/IPRATROPIUM 3 ML (DUONEB) VIAL INH SCH (14:00)
[2021-03-20] MEDS ORDERED: RT-ALBUTEROL/IPRATROPIUM 3 ML (DUONEB) VIAL IH SCH (14:00)
[2021-03-20] MEDS: ENOXAPARIN 40 MG/0.4 ML (LOVENOX) SYR SC SCH (14:31)
[2021-03-20] MEDS: OSELTAMIVIR 75 MG (TAMIFLU) CAPSULE PO SCH ×2 (14:31→20:47)
[2021-03-20] MEDS: RT-ALBUTEROL HFA 8.5 GM INHALER IH SCH ×3 (14:51→22:58)
[2021-03-20 16:00] VITALS: BP 145/93
[2021-03-20] MEDS ORDERED: FLU QUADRIvalent (3YOA+) 60 mcg/0.5 ml 2021-22(AFLURIA) IM ONE (16:00)
[2021-03-20] MEDS ORDERED: RT-ALBUTEROL HFA 8.5 GM INHALER IH PRN (16:00)
[2021-03-20] MEDS: ACETAMINOPHEN 500 MG TAB (TYLENOL) PO PRN (17:25)
[2021-03-20] MEDS: methylPREDNISolone 40 MG/ML (Solu-MEDROL) VIAL IV SCH ×2 (17:25→23:13)
--- NOTE | 2021-03-20 18:15 | History & Physical-Hospitalist ---
INTISH GOMEZ 03/20/211814: History of Present Illness HPI/Chief Complaint Patient presented to ED with shortness of breath and cough which began appr oximately 2 days ago. Things acutely worsened last night after he got off work. At the ED, he received breathing treatment and steroids. He has never felt anything like this before. Other symptoms include headache, sore thoat, and chest pain which all worsen with inspiration and coughing. Chest pain is 10/10 and described as sharp. He feels like there is sputum he needs to cough up but has not been able to. He can't sleep or eat due to pain. He has had no sick contacts to his knowledge. He thought that he might have had fever last night. He did have COVID-19 several months ago. Never received vaccines for covid or flu. Source: patient, RN/MD, other (ED notes) Date Seen 03/20/21 Attending Physician Wesly Phelan MD [facility] Referring Physician Date of Admission Mar 20, 2021 at 11:32 Home Medications & Allergies Home Medications Patient Home Medication Reconciliation to be performed by pharmacy medication reconciliations shipping technician and/or nursing. Patients Allergies have been reviewed. Allergies Allergies Coded Allergies No Known Drug Allergies (Unverified03/29/19) Past Zgdthuu-Wszwua-Lehtzf Hx Patient Social History Marrital Status: single Number of Children: 7 Employed/Student: employed Tobacco Use?: Yes Tobacco type used: Cigarettes Smoking Status: Current Everyday Smoker Smokeless Tobacco Frequency: Heavy User Use of E-Cig and/or Vaping dev: No Substance use?: Yes Substance type: Methamphetamine Additional substance use comme: one month ago once. Alcohol Use?: No Seasonal Allergies Seasonal Allergies: No Current Status Advance Directives: No Communicates: Verbally Primary Language: Chadian Preferred Spoken Language: Chadian Is interpretation needed?: No Implanted or Applied Medical D: None Past Medical History COPD Coronary Artery Disease, Heart Attack, Hypertension Blood Disorders: No Family Medical History Diabetes Review of Systems Constitutional: fever EENTM: blurred vision, nose congestion, throat pain Respiratory: cough, phlegm, short of breath Cardiovascular: chest pain Gastrointestinal: no symptoms reported Genitourinary: frequency (increased ) Musculoskeletal: no symptoms reported Psychiatric/Neurological: Headache Physical Exam Physical Exam Vital Signs Vital Signs - First Documented 03/20/21 03/20/21 05:22 12:21 Temp 36.2 Pulse 118 Resp 26 B/P (MAP) 133/82 (99) Pulse Ox 96 O2 Delivery Nasal Cannula O2 Flow Rate 3.00 FiO2 32 Capillary Refill : Less Than 3 Seconds Height, Weight, BMI Height: '" Weight: lbs. oz. kg; 25.60 BMI Method: General Appearance: Moderate Distress HEENT: Normal ENT Inspection Neck: Normal Inspection Respiratory: Wheezing Cardiovascular: No Murmur, Normal Peripheral Pulses, Tachycardia Gastrointestinal: Normal Bowel Sounds, Non Tender, Soft Extremity: Non Tender, No Calf Tenderness, No Pedal Edema Neurologic/Psychiatric: Alert, Oriented x3 Skin: Normal Color, Warm/Dry Results Results/Procedures Labs Laboratory Tests 03/20/21 05:30 Patient resulted labs reviewed. Imaging: Reviewed Imaging Films, Reviewed Imaging Report Imaging chest x-ray unremarkable for acute cardiopulmonary problem. Meds albuterol, methylprednisolone, acetaminophen, enoxaparin, oseltamivir Assessment/Plan Admission Diagnosis COPD exacerbation due to influenza Admission Status: Inpatient Order (span 2 midnights) Reason for Inpatient Admission: Treatment of COPD exacerbation and influenza. Assessment and Plan COPD acute exacerbation on chronic disease . > methylprednisolone and albuterol. Duoneb pending Covid status. Oxygen to keep O2 sats @ 88-92%. Daily CBC and BMP. Influenza A. > PO Oseltamivir Mild hypokalemia, asymptomatic > PO potassium supplementation Hypertension > treatment pending med rec CAD > treatment pending med rec WESLY PHELAN MD 03/20/212036: History of Present Illness Time Seen by a Provider: 15:45 Supervisory-Addendum Brief Verification & Attestation Participated in pt care: history, MDM, physical Personally performed: exam, history, MDM Care discussed with: Medical Student Procedures: n/a Verification and Attestation of Medical Student E/M Service I reviewed and verified all information documented by the medical student and made modifications to such information, when appropriate. I personally performed the physical exam and medical decision making. Wesly Phelan, Mar 20, 2021,20:37 NITISH GOMEZ Mar 20, 2021 18:15 WESLY PHELAN MD Mar 20, 2021 20:37
[2021-03-20 20:00] VITALS: BP 153/88
[2021-03-20] MEDS ORDERED: CATHETER FLUSH 10 ML SYR IV PRN (21:45)
[2021-03-20] MEDS: CATHETER FLUSH 10 ML SYR IV SCH (22:58)
[2021-03-20 23:51] VITALS: BP 148/85
[2021-03-21] MEDS: RT-ALBUTEROL HFA 8.5 GM INHALER IH SCH ×6 (02:50→21:50)
[2021-03-21 03:59] VITALS: BP 152/89
[2021-03-21] MEDS: ACETAMINOPHEN 500 MG TAB (TYLENOL) PO PRN ×2 (04:19→20:37)
[2021-03-21] MEDS: CATHETER FLUSH 10 ML SYR IV SCH ×3 (06:02→20:38)
[2021-03-21] MEDS: methylPREDNISolone 40 MG/ML (Solu-MEDROL) VIAL IV SCH ×3 (06:32→18:06)
[2021-03-21 06:51] LABS: HEMATOCRIT 41 % (40-54); HEMOGLOBIN 12.7 g/dL (13.3-17.7); MEAN CORPUSCULAR HEMOGLOBIN 22 pg (25-34); MEAN CORPUSCULAR HGB CONC 31 g/dL (32-36); MEAN CORPUSCULAR VOLUME 70 fL (80-99); MEAN PLATELET VOLUME 9.7 fL (9.0-12.2); PLATELET COUNT 303 10^3/uL (130-400); WHITE BLOOD COUNT 8.9 10^3/uL (4.3-11.0)
[2021-03-21 07:04] LABS: POTASSIUM 4.4 MMOL/L (3.6-5.0)
[2021-03-21 07:05] LABS: CALCIUM 8.9 MG/DL (8.5-10.1)
[2021-03-21 07:09] LABS: CREATININE SERUM 0.88 MG/DL (0.60-1.30)
[2021-03-21 08:34] VITALS: BP 131/80
[2021-03-21] MEDS: OSELTAMIVIR 75 MG (TAMIFLU) CAPSULE PO SCH ×2 (10:05→20:36)
[2021-03-21 11:27] VITALS: BP 128/87
[2021-03-21] MEDS: ENOXAPARIN 40 MG/0.4 ML (LOVENOX) SYR SC SCH (12:54)
[2021-03-21] MEDS ORDERED: AMLO-251 PO (14:58)
[2021-03-21] MEDS ORDERED: RT-ALBUINH IH (14:58)
[2021-03-21] MEDS ORDERED: ASPI-999 PO (14:58)
[2021-03-21] MEDS ORDERED: CLN.1T PO (14:58)
[2021-03-21] MEDS ORDERED: MTP25TSR PO (14:58)
[2021-03-21] MEDS ORDERED: FERR325T18 PO (14:58)
--- NOTE | 2021-03-21 15:08 | Progress Note - Hospitalist ---
NITISH GOMEZ 03/21/21 1507: Subjective HPI/CC On Admission Date Seen by Provider: Mar 21, 2021 Patient presented to ED with shortness of breath and cough which began approximately 2 days ago. Things acutely worsened last night after he got off work. At the ED, he received breathing treatment and steroids. He has never felt anything like this before. Other symptoms include headache, sore thoat, and chest pain which all worsen with inspiration and coughing. Chest pain is 10/10 and described as sharp. He feels like there is sputum he needs to cough up but has not been able to. He can't sleep or eat due to pain. He has had no sick c ontacts to his knowledge. He thought that he might have had fever last night. He did have COVID-19 several months ago. Never received vaccines for covid or flu. Subjective/Events-last exam Lonnie was laying on back in bed sleeping when first encountered this morning. He awoke to voice. He reports not feeling much better because he is still experience headache, chest pain, cough, and sore throat. Reports sleeping well last night and is getting ready to eat breakfast. Patient appears to be improving from yesterday. Review of Systems General: No Chills HEENT: Head Aches Pulmonary: Cough Cardiovascular: Chest Pain Gastrointestinal: No: Nausea, Vomiting, Abdominal Pain, Diarrhea, Constipation Genitourinary: No Dysuria Objective Exam Vital Signs Vital Signs Date Time Temp Pulse Resp B/P (MAP) Pulse Ox O2 Delivery O2 Flow Rate FiO2 03/21/21 14:53 96 Nasal Cannula 2.00 03/21/21 11:27 36.3 109 20 128/87 (101) 03/20/21 12:21 32 Capillary Refill : Less Than 3 Seconds General Appearance: No Apparent Distress Respiratory: No Respiratory Distress, Wheezing (Wheezing improved throughout lungs. Still expiratory wheeze in LLL. ) Cardiovascular: No Murmur, Normal Peripheral Pulses Gastrointestinal: Non Tender, Soft; No Distended Rectal: Deferred Extremity: No Pedal Edema Neurologic/Psychiatric: Alert, Normal Mood/Affect Skin: Normal Color, Warm/Dry Results/Procedures Lab Laboratory Tests 03/21/21 06:30 Patient resulted labs reviewed. Meds Metoprolol Succinate Oseltamivir Methylprednisolone Albuterol Albuterol/Ipratropium Enoxaparin Acetaminophen Assessment/Plan Assessment and Plan Assess & Plan/Chief Complaint COPD acute exacerbation on chronic disease. > methylprednisolone. Albuterol and albuterol/ipratropium breathing treatments. Titrate oxygen to keep O2 sats above 90%. Daily CBC and BMP. 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 No acute ischemic changes. > Metoprolol Succinate DVT prophylaxis > Enoxaparin Mild hypokalemia, asymptomatic (RESOLVED) Time spent with patient (mins): 10 ONEYDA PHELAN MD 03/21/21 1850: Subjective HPI/CC On Admission Time Seen by Provider: 11:00 Supervisory-Addendum Brief Verification & Attestation Participated in pt care: history, MDM, physical Personally performed: exam, history, MDM Care discussed with: Medical Student Procedures: n/a Verification and Attestation of Medical Student E/M Service I reviewed and verified all information documented by the medical student and made modifications to such information, when appropriate. I personally performed the physical exam and medical decision making. Oneyda Phelan, Mar 21, 2021,18:50 NITISH GOMEZ Mar 21, 2021 15:07 ONEYDA PHELAN MD Mar 21, 2021 18:50
[2021-03-21 17:00] VITALS: BP 128/87
[2021-03-21 19:58] VITALS: BP 133/76
[2021-03-22 00:12] VITALS: BP 137/95
[2021-03-22] MEDS: methylPREDNISolone 40 MG/ML (Solu-MEDROL) VIAL IV SCH ×5 (00:15→23:13)
[2021-03-22] MEDS: RT-ALBUTEROL HFA 8.5 GM INHALER IH SCH ×5 (02:37→18:39)
[2021-03-22 04:27] VITALS: BP 143/83
[2021-03-22] MEDS: CATHETER FLUSH 10 ML SYR IV SCH ×3 (05:35→19:49)
[2021-03-22 06:06] LABS: HEMATOCRIT 43 % (40-54); HEMOGLOBIN 13.1 g/dL (13.3-17.7); MEAN CORPUSCULAR HEMOGLOBIN 22 pg (25-34); MEAN CORPUSCULAR HGB CONC 31 g/dL (32-36); MEAN CORPUSCULAR VOLUME 70 fL (80-99); PLATELET COUNT 347 10^3/uL (130-400); WHITE BLOOD COUNT 10.6 10^3/uL (4.3-11.0)
[2021-03-22] MEDS: ACETAMINOPHEN 500 MG TAB (TYLENOL) PO PRN (06:11)
[2021-03-22 06:14] LABS: POTASSIUM 4.4 MMOL/L (3.6-5.0)
[2021-03-22 06:15] LABS: CALCIUM 8.8 MG/DL (8.5-10.1)
[2021-03-22 06:19] LABS: CREATININE SERUM 0.99 MG/DL (0.60-1.30)
[2021-03-22 08:07] VITALS: BP 138/83
[2021-03-22] MEDS: ASPIRIN 81 MG CHEW (CHILDREN'S ASA) PO SCH (08:38)
[2021-03-22] MEDS: amLODIPine 10 MG (NORVASC) TAB PO SCH (08:38)
[2021-03-22] MEDS: OSELTAMIVIR 75 MG (TAMIFLU) CAPSULE PO SCH ×2 (08:38→19:49)
[2021-03-22] MEDS: FERROUS SULF 325 MG (IRON) TAB PO SCH (08:38)
--- NOTE | 2021-03-22 09:38 | Progress Note - Hospitalist ---
Subjective HPI/CC On Admission Date Seen by Provider: Mar 22, 2021 Time Seen by Provider: 11:32 Patient presented to ED with shortness of breath and cough which began approximately 2 days ago. Things acutely worsened last night after he got off work. At the ED, he received breathing treatment and steroids. He has never felt anything like this before. Other symptoms include headache, sore thoat, and chest pain which all worsen with inspiration and coughing. Chest pain is 10/10 and described as sharp. He feels like there is sputum he needs to cough up but has not been able to. He can't sleep or eat due to pain. He has had no sick contacts to his knowledge. He thought that he might have had fever last night. He did have COVID-19 several months ago. Never received vaccines for covid or flu. Subjective/Events-last exam Patient doing a lot better Wheezing is still present Influenza managed IV steroids Weaning oxygen Review of Systems General: Fatigue, Malaise Pulmonary: Dyspnea, Cough Objective Exam Vital Signs Vital Signs Date Time Temp Pulse Resp B/P (MAP) Pulse Ox O2 Delivery O2 Flow Rate FiO2 03/22/21 18:40 95 Room Air 03/22/21 15:48 36.0 73 18 130/79 (96) 03/22/21 11:45 2.00 03/21/21 20:20 96 Capillary Refill : Less Than 3 Seconds General Appearance: No Apparent Distress, WD/WN, Chronically ill Respiratory: No Accessory Muscle Use, No Respiratory Distress, Crackles, Decreased Breath Sounds, Wheezing Cardiovascular: Regular Rate, Rhythm Neurologic/Psychiatric: Alert, Oriented x3, No Motor/Sensory Deficits, Normal Mood/Affect Results/Procedures Lab Laboratory Tests 03/22/21 05:45 Patient resulted labs reviewed. Assessment/Plan Assessment and Plan Assess & Plan/Chief Complaint Assessment: Exacerbation of COPD Influenza A Hypokalemia Plan: IV steroids Tamiflu [employer] DO Mar 22, 2021 09:38
[2021-03-22 11:45] VITALS: BP 139/88
[2021-03-22] MEDS ORDERED: SALINE NASAL SPRAY (OCEAN) 45 ML BTL SCH (12:45)
[2021-03-22] MEDS: ENOXAPARIN 40 MG/0.4 ML (LOVENOX) SYR SC SCH (12:46)
[2021-03-22 15:48] VITALS: BP 130/79
[2021-03-22 19:45] VITALS: BP 152/85
[2021-03-22] MEDS ORDERED: MONTELUKAST 10 MG (SINGULAIR) TAB ONE (19:54)
[2021-03-22] MEDS: MONTELUKAST 10 MG (SINGULAIR) TAB PO SCH (19:54)
[2021-03-23] VITALS (7 sets, daily range): BP systolic 114–151; BP diastolic 71–88
[2021-03-23] MEDS: RT-ALBUTEROL HFA 8.5 GM INHALER IH SCH ×3 (02:57→19:06)
[2021-03-23] MEDS: methylPREDNISolone 40 MG/ML (Solu-MEDROL) VIAL IV SCH ×3 (05:34→17:10)
[2021-03-23] MEDS: CATHETER FLUSH 10 ML SYR IV SCH ×3 (05:35→20:05)
[2021-03-23] MEDS: ACETAMINOPHEN 500 MG TAB (TYLENOL) PO PRN (06:01)
[2021-03-23 06:11] LABS: HEMATOCRIT 42 % (40-54); HEMOGLOBIN 12.9 g/dL (13.3-17.7); MEAN CORPUSCULAR HEMOGLOBIN 21 pg (25-34); MEAN CORPUSCULAR HGB CONC 30 g/dL (32-36); MEAN CORPUSCULAR VOLUME 70 fL (80-99); MEAN PLATELET VOLUME 10.1 fL (9.0-12.2); PLATELET COUNT 364 10^3/uL (130-400); WHITE BLOOD COUNT 10.7 10^3/uL (4.3-11.0)
[2021-03-23 06:30] LABS: CALCIUM 8.5 MG/DL (8.5-10.1)
[2021-03-23 06:35] LABS: CREATININE SERUM 1.1 MG/DL (0.60-1.30)
--- NOTE | 2021-03-23 08:21 | Progress Note - Hospitalist ---
Subjective HPI/CC On Admission Date Seen by Provider: Mar 23, 2021 Time Seen by Provider: 13:00 Patient presented to ED with shortness of breath and cough which began approximately 2 days ago. Things acutely worsened last night after he got off work. At the ED, he received breathing treatment and steroids. He has never felt anything like this before. Other symptoms include headache, sore thoat, and chest pain which all worsen with inspiration and coughing. Chest pain is 10/10 and described as sharp. He feels like there is sputum he needs to cough up but has not been able to. He can't sleep or eat due to pain. He has had no sick contacts to his knowledge. He thought that he might have had fever last night. He did have COVID-19 several months ago. Never received vaccines for covid or flu. Subjective/Events-last exam Patient doing really well No more wheezing Coughing still Check meds and labs Labs good Review of Systems General: Fatigue, Malaise Objective Exam Vital Signs Vital Signs Date Time Temp Pulse Resp B/P (MAP) Pulse Ox O2 Delivery O2 Flow Rate FiO2 03/23/21 19:08 97 Room Air 03/23/21 16:00 36.1 92 18 138/88 (105) 03/23/21 08:00 2.00 03/23/21 06:50 21 Capillary Refill : Less Than 3 Seconds General Appearance: No Apparent Distress, WD/WN, Chronically ill Respiratory: Lungs Clear, Normal Breath Sounds, Decreased Breath Sounds Cardiovascular: Regular Rate, Rhythm Neurologic/Psychiatric: Alert, Oriented x3, No Motor/Sensory Deficits, Normal Mood/Affect Results/Procedures Lab Laboratory Tests 03/23/21 05:46 Patient resulted labs reviewed. Assessment/Plan Assessment and Plan Assess & Plan/Chief Complaint Assessment: Exacerbation of COPD Influenza A Hypokalemia Plan: IV steroids Tamiflu 03/23/2021: Antitussives IV steroids [employer] DO Mar 23, 2021 08:21
[2021-03-23] MEDS: ASPIRIN 81 MG CHEW (CHILDREN'S ASA) PO SCH (08:26)
[2021-03-23] MEDS: FERROUS SULF 325 MG (IRON) TAB PO SCH (08:26)
[2021-03-23] MEDS: OSELTAMIVIR 75 MG (TAMIFLU) CAPSULE PO SCH ×2 (08:26→20:04)
[2021-03-23] MEDS: amLODIPine 10 MG (NORVASC) TAB PO SCH (08:26)
[2021-03-23] MEDS: ENOXAPARIN 40 MG/0.4 ML (LOVENOX) SYR SC SCH (12:27)
[2021-03-23] MEDS ORDERED: guaiFENesin/CODEINE (ROBITUSSIN AC) 10ML UDC PO PRN (13:15)
[2021-03-23] MEDS: RT--FLUTICASONE/SALMETEROL 113-14 (AIRDUO RespiCLICK) IH SCH (19:07)
[2021-03-23] MEDS: MONTELUKAST 10 MG (SINGULAIR) TAB PO SCH (20:04)
[2021-03-23] MEDS ORDERED: RT-ALBUTEROL/IPRATROPIUM 3 ML (DUONEB) VIAL IH SCH (21:00)
[2021-03-24] VITALS: BP 136/88
[2021-03-24] MEDS: methylPREDNISolone 40 MG/ML (Solu-MEDROL) VIAL IV SCH ×3 (00:30→11:40)
[2021-03-24] MEDS: CATHETER FLUSH 10 ML SYR IV SCH (05:53)
[2021-03-24 06:19] LABS: BASOPHILS % (AUTO) 0 % (0-10); EOSINOPHILS % (AUTO) 0 % (0-10); HEMATOCRIT 40 % (40-54); HEMOGLOBIN 12.6 g/dL (13.3-17.7); LYMPHOCYTES # (AUTO) 0.4 10^3/uL (1.0-4.0); LYMPHOCYTES % (AUTO) 5 % (12-44); MEAN CORPUSCULAR HEMOGLOBIN 22 pg (25-34); MEAN CORPUSCULAR HGB CONC 32 g/dL (32-36); MEAN CORPUSCULAR VOLUME 69 fL (80-99); MEAN PLATELET VOLUME 9.6 fL (9.0-12.2); MONOCYTES # (AUTO) 0.3 10^3/uL (0.0-1.0); MONOCYTES % (AUTO) 4 % (0-12); NEUTROPHILS % (AUTO) 91 % (42-75); PLATELET COUNT 362 10^3/uL (130-400); WHITE BLOOD COUNT 7.7 10^3/uL (4.3-11.0)
[2021-03-24 06:34] LABS: ALBUMIN 3.5 GM/DL (3.2-4.5); POTASSIUM 4.4 MMOL/L (3.6-5.0)
[2021-03-24 06:35] LABS: CALCIUM 8.3 MG/DL (8.5-10.1)
[2021-03-24 06:36] LABS: TOTAL PROTEIN 6.2 GM/DL (6.4-8.2)
[2021-03-24 06:38] LABS: BILIRUBIN,TOTAL 0.3 MG/DL (0.1-1.0)
[2021-03-24 06:40] LABS: CREATININE SERUM 0.95 MG/DL (0.60-1.30)
[2021-03-24 07:15] LABS: ATYPICAL LYMPHOCYTES 1 %; LYMPHOCYTES % (MANUAL) 5 %; MONOCYTES % (MANUAL) 1 %; NEUTROPHILS % (MANUAL) 93 %; NUCLEATED RED BLOOD CELLS 2
[2021-03-24 07:16] LABS: ANISOCYTOSIS SLIGHT; HYPOCHROMASIA SLIGHT; MICROCYTOSIS MODERATE
[2021-03-24] MEDS: RT--FLUTICASONE/SALMETEROL 113-14 (AIRDUO RespiCLICK) IH SCH (07:18)
[2021-03-24] MEDS: RT-ALBUTEROL HFA 8.5 GM INHALER IH SCH ×2 (07:20→07:32)
[2021-03-24 08:00] VITALS: BP_SYST 125; BP_SYST 135; BP_DIAS 77; BP_DIAS 79
[2021-03-24] MEDS: OSELTAMIVIR 75 MG (TAMIFLU) CAPSULE PO SCH (08:56)
[2021-03-24] MEDS: amLODIPine 10 MG (NORVASC) TAB PO SCH (08:56)
[2021-03-24] MEDS: ASPIRIN 81 MG CHEW (CHILDREN'S ASA) PO SCH (08:56)
[2021-03-24] MEDS: FERROUS SULF 325 MG (IRON) TAB PO SCH (08:56)
--- NOTE | 2021-03-24 11:13 | Discharge Summary ---
Diagnosis/Chief Complaint Date of Admission Mar 20, 2021 at 11:32 Date of Discharge Discharge Summary-Simple/Stand Consultations Discharge Physical Examination Allergies: Coded Allergies: No Known Drug Allergies (Unverified , 03/29/19) Vitals & I&Os Vital Sign - Last 12Hours Date Time Temp Pulse Resp B/P (MAP) Pulse Ox O2 Delivery O2 Flow Rate FiO2 03/24/21 08:00 Room Air 03/24/21 08:00 36.6 79 20 125/77 (93) 95 03/23/21 08:00 2.00 03/23/21 06:50 21 Intake and Output 03/24/21 00:00 Intake Total 740 ml Output Total 875 ml Balance -135 ml Hospital Course See final discharge diagnosis. Discharge Instructions to patient/family Please see electronic discharge instructions given to patient. Discharge Medications Reviewed and agree with Discharge Medication list on patient's Discharge Instruction sheet KEKE BARROS MD Mar 24, 2021 11:13
[2021-03-24] MEDS ORDERED: PRD50T PO (11:15)
[2021-03-24] MEDS ORDERED: MONT-40 PO (11:15)
[2021-03-24] MEDS ORDERED: OSLT75C PO (11:15)
--- NOTE | 2021-03-24 11:16 | Discharge Summary ---
Discharge [facility] Reconcile Patient Problems Problems Reviewed?: Yes Discharge Medications New, Converted or Re-Newed RX: Transmitted to Pharmacy New Medications: Prednisone (Prednisone) 50 Mg Tab 50 MG PO DAILY, #5 TAB Montelukast Sodium (Montelukast Sodium) 10 Mg Tablet 10 MG PO HS, #30 TAB Oseltamivir Phosphate (Tamiflu) 75 Mg Cap 75 MG PO BID, #8 CAP Continued Medications: Albuterol Sulfate (Proair Hfa) 1 Puff Puff 2 PUFF IH Q4H PRN for SHORTNESS OF BREATH, EA Amlodipine Besylate (Amlodipine Besylate) 10 Mg Tablet 10 MG PO DAILY, TAB Aspirin (Aspirin) 81 Mg Tab.chew 81 MG PO DAILY, TAB Clonidine HCl (Clonidine HCl) 0.1 Mg Tablet 0.1 MG PO DAILY, TAB Ferrous Sulfate (Ferrous Sulfate) 325 Mg Tablet 325 MG PO DAILY, TAB Metoprolol Succinate (Metoprolol Succinate) 25 Mg Tab.er.24h 25 MG PO DAILY, TAB Patient Instructions Goal/Follow Up Appt: 1 week with Prashanth in [place] Activity & Diet Discharge Diet: Cardiac Diet Activity as Tolerated: Yes KEKE BARROS MD Mar 24, 2021 11:16
[2021-03-24] MEDS: ENOXAPARIN 40 MG/0.4 ML (LOVENOX) SYR SC SCH (11:40)
[2021-03-24 11:50] VITALS: BP 125/77
== END 2021-03-24 11:55 | disposition home or self-care (01) | DRG 193 ==
LOC: EDUNIT# 05:20 → ER FS 05:22 → 4TH 11:32
PROVIDERS: ADMIT Family Medicine; ATTEND Family Medicine
DX: J10.1 Influenza due to other identified influenza virus with other respiratory manifestations (principal); J96.01 Acute respiratory failure with hypoxia; J44.1 Chronic obstructive pulmonary disease with (acute) exacerbation; Z20.822 Contact with and (suspected) exposure to COVID-19; I25.2 Old myocardial infarction; I10 Essential (primary) hypertension; F17.210 Nicotine dependence, cigarettes, uncomplicated; I25.10 Atherosclerotic heart disease of native coronary artery without angina pectoris; E87.6 Hypokalemia; R00.0 Tachycardia, unspecified
CPT/HCPCS: 36415; 71045; 80048; 80053; 83880; 84484; 85007; 85025; 85027; 87635; 87636; 87804; 93005; 94640; 94760

== ENCOUNTER 2021-04-05 13:08 | Emergency (ER) | payer OTHER ==
[~2021-04-05 13:08] MED LIST changes: +AMLO-251 PO; +ASPI-999 PO; +CLN.1T PO; +FERR325T18 PO; +MONT-40 PO; +MTP25TSR PO; +OSLT75C PO; +PRD50T PO
--- NOTE | 2021-04-05 13:58 | ED General ---
General Stated Complaint: MEDICAL CLEARANCE; LT ARM INJ Source of Information: Patient, Police Exam Limitations: No Limitations History of Present Illness Date Seen by Provider: Apr 05, 2021 Time Seen by Provider: 13:15 Initial Comments 60-year-old male with past medical history of COPD and hypertension coming in with the police for medical clearance. He was tased and one of the prongs got into his left arm so they needed clearance. He is unsure of his last tetanus shot. Pain is mild, constant, sharp in his left arm. Otherwise denying any other acute complaints. Nothing seems to make the pain better or worse Allergies and Home Medications Allergies Coded Allergies: No Known Drug Allergies (Unverified , 03/29/19) Patient Home Medication List Home Medication List Reviewed: Yes Albuterol Sulfate (Proair Hfa) 1 Puff Puff, 2 PUFF IH Q4H PRN for SHORTNESS OF BREATH, (Reported) Entered as Reported by: CRISTIAN STORY on 03/21/21 145 Amlodipine Besylate (Amlodipine Besylate) 10 Mg Tablet, 10 MG PO DAILY, (Reported) Entered as Reported by: CRISTIAN STORY on 03/21/211457 Aspirin (Aspirin) 81 Mg Tab.chew, 81 MG PO DAILY, (Reported) Entered as Reported by: CRISTIAN STORY on 03/21/211457 Clonidine HCl (Clonidine HCl) 0.1 Mg Tablet, 0.1 MG PO DAILY, (Reported) Entered as Reported by: CRISTIAN STORY on 03/21/211457 Ferrous Sulfate (Ferrous Sulfate) 325 Mg Tablet, 325 MG PO DAILY, (Reported) Entered as Reported by: CRISTIAN STORY on 03/21/21 145 Metoprolol Succinate (Metoprolol Succinate) 25 Mg Tab.er.24h, 25 MG PO DAILY, (Reported) Entered as Reported by: CRISTIAN STORY on 03/21/21 145 Montelukast Sodium (Montelukast Sodium) 10 Mg Tablet, 10 MG PO HS Prescribed by: KEKE BARROS on 03/24/211114 Oseltamivir Phosphate (Tamiflu) 75 Mg Cap, 75 MG PO BID Prescribed by: KEKE BARROS on 03/24/211114 Prednisone (Prednisone) 50 Mg Tab, 50 MG PO DAILY Prescribed by: KEKE BARROS on 1/10/22 1115 Review of Systems Review of Systems Constitutional: No chills EENTM: No blurred vision Respiratory: No cough Cardiovascular: No chest pain Gastrointestinal: No abdominal pain Genitourinary: no symptoms reported Musculoskeletal: other (arm pain) Skin: no symptoms reported Psychiatric/Neurological: No Symptoms Reported Hematologic/Lymphatic: No Symptoms Reported Immunological/Allergic: no symptoms reported All Other Systems Reviewed Negative Unless Noted: Yes Past Sqcycus-Jnmjcu-Yddtmg Hx Patient Social History Tobacco Use?: Yes Seasonal Allergies Seasonal Allergies: No Past Medical History Surgery/Hospitalization HX: HTN, Reports heart attack was in intermediate only given nirto. Surgeries: No Respiratory: No COPD Cardiac: Yes Coronary Artery Disease, Heart Attack, Hypertension Neurological: No Genitourinary: No Gastrointestinal: No Musculoskeletal: No Endocrine: No HEENT: No Cancer: No Psychosocial: No Integumentary: No Blood Disorders: No Family Medical History Diabetes Physical Exam Vital Signs Capillary Refill : Height, Weight, BMI Height: '" Weight: lbs. oz. kg; 25.60 BMI Method: General Appearance: No Apparent Distress, WD/WN Eyes: Bilateral Eye Normal Inspection HEENT: PERRL/EOMI, Normal ENT Inspection, Pharynx Normal Neck: Full Range of Motion, Normal Inspection, Non Tender, Supple Respiratory: Chest Non Tender, Lungs Clear, Normal Breath Sounds, No Accessory Muscle Use, No Respiratory Distress Cardiovascular: Regular Rate, Rhythm, No Edema, Normal Peripheral Pulses Gastrointestinal: Normal Bowel Sounds, Non Tender, Soft; No Distended, No Guarding Back: Normal Inspection, No CVA Tenderness, No Vertebral Tenderness Extremity: Normal Capillary Refill, Normal Inspection, Normal Range of Motion, Non Tender, No Calf Tenderness, No Pedal Edema Neurologic/Psychiatric: Alert, No Motor/Sensory Deficits, Normal Mood/Affect Skin: Normal Color, Warm/Dry, Other (Small taser wound to the lateral left upper arm which is hemostatic) Lymphatic: No Adenopathy Progress/Results/Core Measures Suspected Sepsis SIRS Temperature: Pulse: Respiratory Rate: Blood Pressure / Mean: Results/Orders My Orders Orders - RODRÍGUEZ DUMAS MD Dipht,Pertuss(Acell),Tet Adult (Boostrix (04/05/21 14:00) Acetaminophen Tablet (Tylenol Tablet) (04/05/21 14:00) Vital Signs/I&O Capillary Refill : Progress Note : Progress Note 60-year-old male with above history coming in after he was tased to assess the wound to be cleared. The wound is small, hemostatic, and it was cleansed. Tdap updated today. Given Tylenol for pain control. He has no other complaints and vitals are within normal limits. I believe he is stable for discharge with outpatient follow-up. He was sent with the police with strict return precautions Departure Impression Primary Impression: Encounter for assessment of wound Disposition: 01 HOME, SELF-CARE Condition: Stable Departure-Patient Inst. Decision time for Depature: 13:57 Referrals: [facility] (PCP/Family) Primary Care Physician Patient Instructions: Wound Care (DC) Add. Discharge Instructions: Keep the wound clean, and if redness starts spreading or pus starts coming out then please be seen by . Also please tell someone if you develop a fever. Take Tylenol 1000 mg every 6 hours as needed for pain. Use your inhaler every 6 hours as needed for shortness of breath for your COPD RODRÍGUEZ DUMAS MD Apr 05, 2021 13:58
[2021-04-05] MEDS ORDERED: ACETAMINOPHEN 500 MG TAB (TYLENOL) PO ONE (14:00)
[2021-04-05] MEDS ORDERED: TETANUS,DIPTH,PERTUSS P/F (BOOSTRIX) 0.5 ML VIAL IM ONE (14:00)
[2021-04-05 14:28] VITALS: BP 129/88
== END 2021-04-05 14:28 ==
LOC: ER FS 13:09
DX: Z48.817 Encounter for surgical aftercare following surgery on the skin and subcutaneous tissue (principal); I25.2 Old myocardial infarction; I10 Essential (primary) hypertension; J44.9 Chronic obstructive pulmonary disease, unspecified; Z72.0 Tobacco use; Z23 Encounter for immunization; Z79.82 Long term (current) use of aspirin
CPT/HCPCS: 90715; 99284

== ENCOUNTER 2021-11-25 08:17 | Emergency (ER) | payer SELFPAY ==
[2021-11-25] MEDS ORDERED: RT-ALBUTEROL/IPRATROPIUM 3 ML (DUONEB) VIAL INH ONE (08:30)
[2021-11-25] MEDS ORDERED: ASPIRIN 81 MG CHEW (CHILDREN'S ASA) PO ONE (08:30)
[2021-11-25 08:36] LABS: BILIRUBIN,URINE NEGATIVE (NEGATIVE); CLARITY,URINE CLEAR; COLOR,URINE YELLOW; GLUCOSE, URINE (UA) NEGATIVE (NEGATIVE); KETONES,URINE NEGATIVE (NEGATIVE); LEUKOCYTE ESTERASE ,URINE NEGATIVE (NEGATIVE); NITRITE,URINE NEGATIVE (NEGATIVE); PH,URINE 6.5 (5-9); PROTEIN,URINE NEGATIVE (NEGATIVE)
[2021-11-25] MEDS: NITROGLYCERIN 0.4 MG SL TABS BTL 25'S SL PRN ×2 (08:36→08:43)
--- NOTE | 2021-11-25 08:37 | ED Chest Pain ---
General Stated Complaint: CHEST PAIN Source: patient Exam Limitations: no limitations History of Present Illness Date Seen by Provider: Nov 25, 2021 Time Seen by Provider: 08:23 Initial Comments Patient to the ER from [facility] with Bossermias PANTOJAN and chief complaint that he is having some chest pain since last night shortly after he got off work about 2129. The pain kept him up throughout the night. He is having a little bit of wheezing but no shortness of air. Normal complement of cough. History of COPD. Not taking any breathing treatments. He is taking his metoprolol, aspirin and amlodipine. He has noticed some swelling in his legs lately since starting the amlodipine. He denies a history of heart failure but states he did have a heart attack sometime in the . No stents placed. Does not follow with cardiology. No history of hyperlipidemia diabetes. He does smoke about a pack of cigarettes a day and has maternal history of diabetes and kidney failure but no early onset coronary disease. His chest pain is all over his chest. Its not made worse with laying down flat. He is not having any fevers chills diarrhea nausea or vomiting. Rates his pain as a 10 out of 10, reproducible with deep inspiration but not direct palpation. Last methamphetamine use was a couple months ago prior to going to group home. He works in food cooking machine operator. Allergies and Home Medications Allergies Coded Allergies: No Known Drug Allergies (Unverified , 03/29/19) Patient Home Medication List Home Medication List Reviewed: Yes Albuterol Sulfate (Proair Hfa) 1 Puff Puff, 2 PUFF IH Q4H PRN for SHORTNESS OF BREATH, (Reported) Entered as Reported by: CRISTIAN STORY on 03/21/211457 Amlodipine Besylate (Amlodipine Besylate) 10 Mg Tablet, 10 MG PO DAILY, (Reported) Entered as Reported by: CRISTIAN STORY on 03/21/21 145 Aspirin (Aspirin) 81 Mg Tab.chew, 81 MG PO DAILY, (Reported) Entered as Reported by: CRISTIAN STROY on 03/21/211457 Clonidine HCl (Clonidine HCl) 0.1 Mg Tablet, 0.1 MG PO DAILY, (Reported) Entered as Reported by: CRISTIAN STORY on 03/21/21 145 Ferrous Sulfate (Ferrous Sulfate) 325 Mg Tablet, 325 MG PO DAILY, (Reported) Entered as Reported by: CRISTIAN STORY on 03/21/211457 Metoprolol Succinate (Metoprolol Succinate) 25 Mg Tab.er.24h, 25 MG PO DAILY, (Reported) Entered as Reported by: CRISTIAN STORY on 03/21/211457 Montelukast Sodium (Montelukast Sodium) 10 Mg Tablet, 10 MG PO HS Prescribed by: KEKE BARROS on 03/24/21 111 Oseltamivir Phosphate (Tamiflu) 75 Mg Cap, 75 MG PO BID Prescribed by: KEKE BARROS on 03/24/211114 Prednisone (Prednisone) 50 Mg Tab, 50 MG PO DAILY Prescribed by: KEKE BARROS on 03/24/211114 Review of Systems Review of Systems Constitutional: No chills, No fever, No malaise EENTM: No Blurred Vision, No Double Vision Respiratory: Cough; Denies Orthopnea, Denies Shortness of Air, Denies SOA With Exertion Cardiovascular: See HPI, Chest Pain, Edema; Denies Lightheadedness Gastrointestinal: Denies Abdominal Pain, Denies Constipated, Denies Diarrhea, Denies Nausea Genitourinary: Denies Burning, Denies Discharge Musculoskeletal: No back pain, No joint pain Skin: No pruritus, No rash Psychiatric/Neurological: Denies Headache, Denies Numbness All Other Systems Reviewed Negative Unless Noted: Yes Past Ulwfkql-Zewyld-Fsttiu Hx Patient Social History Tobacco Use?: Yes Use of E-Cig and/or Vaping dev: No Substance use?: Yes Substance type: Amphetamines, Methamphetamine Immunizations Up To Date First/Initial COVID19 Vaccinat: Not currently vaccinated Seasonal Allergies Seasonal Allergies: No Past Medical History Surgery/Hospitalization HX: HTN, Reports heart attack was in group home only given nirto. Surgeries: No Respiratory: No COPD Cardiac: Yes Coronary Artery Disease, Heart Attack, Hypertension Neurological: No Genitourinary: No Gastrointestinal: No Musculoskeletal: No Endocrine: No HEENT: No Cancer: No Psychosocial: No Integumentary: No Blood Disorders: No Family Medical History Diabetes Physical Exam Vital Signs Vital Signs - First Documented 11/25/21 08:20 Temp 36.2 Pulse 79 Resp 18 B/P (MAP) 145/92 (109) Pulse Ox 98 O2 Delivery Room Air Capillary Refill : Height, Weight, BMI Height: '" Weight: lbs. oz. kg; 25.60 BMI Method: General Appearance: WD/WN, Mild Distress HEENT: PERRL/EOMI, Pharynx Normal, Moist Mucous Membranes Neck: Full Range of Motion, Normal Inspection, Non Tender Respiratory: No Accessory Muscle Use, No Respiratory Distress; No Crackles; Decreased Breath Sounds, Wheezing (Left worse than right) Cardiovascular: Regular Rate, Rhythm, Normal Peripheral Pulses, Other (Trace bipedal edema to the mid shaft tibia) Gastrointestinal: Non Tender, Soft Extremity: Normal Capillary Refill, Normal Inspection, Pedal Edema (Trace bipedal) Neurologic/Psychiatric: Alert, Oriented x3, No Motor/Sensory Deficits Skin: Normal Color, Warm/Dry Progress/Results/Core Measures Results/Orders Lab Results Laboratory Tests Test 11/25/21 08:25 11/25/21 10:25 Range/Units White Blood Count 3.8 L 4.3-11.0 10^3/uL Red Blood Count 5.70 H 4.30-5.52 10^6/uL Hemoglobin 12.3 L 13.3-17.7 g/dL Hematocrit 39 L 40-54 % Mean Corpuscular Volume 68 L 80-99 fL Mean Corpuscular Hemoglobin 22 L 25-34 pg Mean Corpuscular Hemoglobin Concent 32 32-36 g/dL Red Cell Distribution Width 16.8 H 10.0-14.5 % Platelet Count 346 130-400 10^3/uL Mean Platelet Volume 9.5 9.0-12.2 fL Immature Granulocyte % (Auto) 0 % Neutrophils (%) (Auto) 56 42-75 % Lymphocytes (%) (Auto) 27 12-44 % Monocytes (%) (Auto) 13 H 0-12 % Eosinophils (%) (Auto) 5 0-10 % Basophils (%) (Auto) 0 0-10 % Neutrophils # (Auto) 2.1 1.8-7.8 10^3/uL Lymphocytes # (Auto) 1.0 1.0-4.0 10^3/uL Monocytes # (Auto) 0.5 0.0-1.0 10^3/uL Eosinophils # (Auto) 0.2 0.0-0.3 10^3/uL Basophils # (Auto) 0.0 0.0-0.1 10^3/uL Immature Granulocyte # (Auto) 0.0 0.0-0.1 10^3/uL Prothrombin Time 13.1 12.2-14.7 SEC INR Comment 1.0 0.8-1.4 Activated Partial Thromboplast Time 27 24-35 SEC Urine Color YELLOW Urine Clarity CLEAR Urine pH 6.5 5-9 Urine Specific [place] <=1.005 1.016-1.022 Urine Protein NEGATIVE NEGATIVE Urine Glucose (UA) NEGATIVE NEGATIVE Urine Ketones NEGATIVE NEGATIVE Urine Nitrite NEGATIVE NEGATIVE Urine Bilirubin NEGATIVE NEGATIVE Urine Urobilinogen 0.2 < = 1.0 MG/DL Urine Leukocyte Esterase NEGATIVE NEGATIVE Urine RBC (Auto) NEGATIVE NEGATIVE Urine RBC NONE /HPF Urine WBC NONE /HPF Urine Squamous Epithelial Cells RARE /HPF Urine Crystals NONE /LPF Urine Bacteria NEGATIVE /HPF Urine Casts NONE /LPF Urine Mucus NEGATIVE /LPF Urine Culture Indicated NO Sodium Level 141 135-145 MMOL/L Potassium Level 3.3 L 3.6-5.0 MMOL/L Chloride Level 105 98-107 MMOL/L Carbon Dioxide Level 26 21-32 MMOL/L Anion Gap 10 5-14 MMOL/L Blood Urea Nitrogen 10 7-18 MG/DL Creatinine 0.90 0.60-1.30 MG/DL Estimat Glomerular Filtration Rate 96 BUN/Creatinine Ratio 11 Glucose Level 125 H 70-105 MG/DL Calcium Level 8.8 8.5-10.1 MG/DL Corrected Calcium 8.5 8.5-10.1 MG/DL Magnesium Level 1.9 1.6-2.4 MG/DL Total Bilirubin 0.4 0.1-1.0 MG/DL Aspartate Amino Transf (AST/SGOT) 16 5-34 U/L Alanine Aminotransferase (ALT/SGPT) 13 0-55 U/L Alkaline Phosphatase 76 40-136 U/L Myoglobin 35.1 <72.0 NG/ML Troponin I < 0.30 < 0.30 <0.30 NG/ML Pro-B-Type Natriuretic Peptide 165.5 H <125.0 PG/ML Total Protein 7.0 6.4-8.2 GM/DL Albumin 4.4 3.2-4.5 GM/DL Lipase 35 8-78 U/L Urine Opiates Screen NEGATIVE NEGATIVE Urine Oxycodone Screen NEGATIVE NEGATIVE Urine Methadone Screen NEGATIVE NEGATIVE Urine Propoxyphene Screen NEGATIVE NEGATIVE Urine Barbiturates Screen NEGATIVE NEGATIVE Ur Tricyclic Antidepressants Screen NEGATIVE NEGATIVE Urine Phencyclidine Screen NEGATIVE NEGATIVE Urine Amphetamines Screen NEGATIVE NEGATIVE Urine Methamphetamines Screen NEGATIVE NEGATIVE Urine Benzodiazepines Screen NEGATIVE NEGATIVE Urine Cocaine Screen POSITIVE H NEGATIVE Urine Cannabinoids Screen NEGATIVE NEGATIVE My Orders Orders - LJ FUNG Continuous Ekg Monitoring (11/25/21 08:19) Ekg Tracing (11/25/21 08:19) Ua Culture If Indicated (11/25/21 08:19) Drug Screen Stat (Urine) (11/25/21 08:19) Cbc With Automated Diff (11/25/21 08:29) Magnesium (11/25/21 08:29) Chest 1 View Ap/Pa Only (11/25/21 08:29) Comprehensive Metabolic Panel (11/25/21 08:29) Myoglobin Serum (11/25/21 08:29) Protime With Inr (11/25/21 08:29) Partial Thromboplastin Time (11/25/21 08:29) O2 (11/25/21 08:29) Lipid Panel (11/26/21 06:00) Aspirin Chewable Tablet (Baby Aspirin Ch (11/25/21 08:30) Nitroglycerin 0.4 Mg Btl 25's (Nitrostat (11/25/21 08:30) Ed Iv/Invasive Line Start (11/25/21 08:29) Lipase (11/25/21 08:29) Troponin I Fs (11/25/21 08:29) Probnp Fs (11/25/21 08:29) Albuterol/Ipra Inhalation Soln (Duoneb I (11/25/21 08:30) Svn Small Volume Nebulizer (11/25/21 08:29) Troponin I Fs (11/25/21 10:30) Acetaminophen Tablet (Tylenol Tablet) (11/25/21 09:45) Medications Given in ED Current Medications Medications Dose Ordered Sig/Hector Route Start Time Stop Time Status Last Admin Dose Admin Acetaminophen 1,000 mg ONCE ONCE PO 11/25/21 09:45 11/25/21 09:46 DC 11/25/21 09:44 1,000 MG Albuterol/ Ipratropium 3 ml ONCE ONCE INH 11/25/21 08:30 11/25/21 08:31 DC 11/25/21 08:43 3 ML Aspirin 324 mg ONCE ONCE PO 11/25/21 08:30 11/25/21 08:31 DC 11/25/21 08:36 324 MG Nitroglycerin 0.4 mg UD PRN SL 11/25/21 08:30 11/25/21 08:36 0.4 MG Vital Signs/I&O 11/25/21 08:20 Temp 36.2 Pulse 79 Resp 18 B/P (MAP) 145/92 (109) Pulse Ox 98 O2 Delivery Room Air Progress Progress Note #1: Time: 08:34 Progress Note We will start him with a DuoNeb, 324 mg of aspirin and trial some nitroglycerin. His blood pressure seems under okay control at 135/93. Its possible his swelling in his legs could be related to the amlodipine. His initial EKG does not demonstrate any acute findings. With his risk factors of prior coronary disease, hypertension and smoking even with a negative troponin he would be high risk. Since his pain has been con sistent since last night we will discuss his case with cardiology after his labs come back. Even if he has an initial negative troponin then he would have 4 points on the HEART Pathway Score. High risk; 12-65% 30-day MACE. 0845: First dose nitro gave him a headache but did nothing for his chest pain. We will trial the albuterol/ipratropium now. Progress Note #2: Time: 09:03 Progress Note Patient states he had a significant reduction in his chest pain down to a 4 out of 10 after the DuoNeb. He declined any further nitroglycerin stating all it gave him was a headache. He is resting comfortably with his eyes closed now. He does not have a nebulizer at home so we will give him 1 here. We will also discuss with cardiology potentially doing outpatient follow-up if he has a couple negative troponins. Progress Note #3: Time: 09:35 Progress Note Called [facility] Nichol Weeks and scheduled with ROB Leung, [place] cardiology 12/05/2021 at 10:45 AM. Tylenol 1000 mg for his headache. On repeat auscultation his lung sounds are clear to auscultation. Initial ECG Impression Date: Nov 25, 2021 Initial ECG Impression Time: 08:25 Initial ECG Rate: 77 Initial ECG Rhythm: Normal Sinus Initial ECG Intervals: Normal Initial ECG Impression: Normal Initial ECG Comparisson: Unchanged Comment Normal sinus rhythm without clinically relevant ST elevation or depression. Diagnostic Imaging Diagonstic Imaging: Xray Plain Films/CT/US/NM/MRI: chest Comments NAME: DOUGLAS CARRANZA [facility] REC#: [id number] PT STATUS: REG ER : 1960 PHYSICIAN: LJ FUNG MD ADMIT DATE: 11/25/21/ER FS Draft Date of Exam:11/25/21 CHEST 1 VIEW AP/PA ONLY INDICATION: Wheezing. COMPARISON: 03/20/2021. FINDINGS: The lungs are hyperexpanded but clear. No failure, effusion or pneumothorax. IMPRESSION: No acute appearing abnormality. Dictated on workstation # [id number] Dict: 11/25/21 0848 Trans: 11/25/2158 [id number] Interpreted by: BRIANNA SNYDER Electronically signed by: Reviewed: Reviewed by Me Consults : Consulting Physician: NUNU SPIVEY MD Consults Notes Discussed the case with Dr. Spivey, cardiology and 929. Since the chest pains been going on for 12 hours and he has a negative troponin he is okay with doing a delta troponin here in the ER and if it is okay then he would follow him up in the clinic. The patient is in agreement with this plan and is not interested in staying in the hospital. Departure Impression Primary Impression: COPD exacerbation Additional Impression: Chest pain Qualified Codes: R07.1 - Chest pain on breathing Disposition: 01 HOME, SELF-CARE Condition: Stable Departure-Patient Inst. Decision time for Depature: 10:54 Referrals: JACQUIE BARBOUR APRN (PCP) Primary Care Physician [facility] [place] (Family) Primary Care Physician NUNU SPIVEY MD Patient Instructions: Chest Pain, Adult ED, Exacerbation of COPD (DC) Add. Discharge Instructions: Use the DuoNeb every 4 hours as needed for coughing fits, wheezing or shortness of air. Continue to take your medications as prescribed. Keep your follow-up appointment with cardiology on December 05, 2021, Wednesday at 10:45 AM at [facility] in [place]. Return to the ER for intractable, severe chest pain or other worrisome symptoms. Scripts Ipratropium/Albuterol Sulfate (Iprat-Albut 0.5-3(2.5) mg/3 ml) 0.5 Mg-3 Mg (2.5 Mg Base)/3 Ml Ampul.neb 3 ML IH Q4H PRN for SHORTNESS OF BREATH, #60 EACH 0 Refills Prov: LJ FUNG 11/25/21 Work/School Note: Work Release Form Date Seen in the Emergency Department: Nov 25, 2021 Return to Work: Nov 26, 2021 Restrictions: No Restrictions Copy Copies To 1: MARTY MORENO DO; NUNU SPIVEY MD, TITUS J Nov 25, 2021 08:37
[2021-11-25 08:47] LABS: BASOPHILS % (AUTO) 0 % (0-10); EOSINOPHILS # (AUTO) 0.2 10^3/uL (0.0-0.3); EOSINOPHILS % (AUTO) 5 % (0-10); HEMATOCRIT 39 % (40-54); HEMOGLOBIN 12.3 g/dL (13.3-17.7); LYMPHOCYTES % (AUTO) 27 % (12-44); MEAN CORPUSCULAR HEMOGLOBIN 22 pg (25-34); MEAN CORPUSCULAR HGB CONC 32 g/dL (32-36); MEAN CORPUSCULAR VOLUME 68 fL (80-99); MEAN PLATELET VOLUME 9.5 fL (9.0-12.2); MONOCYTES # (AUTO) 0.5 10^3/uL (0.0-1.0); MONOCYTES % (AUTO) 13 % (0-12); NEUTROPHILS # (AUTO) 2.1 10^3/uL (1.8-7.8); NEUTROPHILS % (AUTO) 56 % (42-75); PLATELET COUNT 346 10^3/uL (130-400); WHITE BLOOD COUNT 3.8 10^3/uL (4.3-11.0)
--- NOTE | 2021-11-25 08:58 | Diagnostic Imaging Report ---
INDICATION: Wheezing. COMPARISON: 03/20/2021. FINDINGS: The lungs are hyperexpanded but clear. No failure, effusion or pneumothorax. IMPRESSION: No acute appearing abnormality. Dictated by: Dictated on workstation # [id number]
[2021-11-25 09:00] LABS: BACTERIA,URINE NEGATIVE /HPF; SQUAMOUS EPITHELIAL CELL,UR RARE /HPF
[2021-11-25 09:01] LABS: AMPHETAMINE SCREEN, URINE NEGATIVE (NEGATIVE); BARBITURATE SCREEN URINE NEGATIVE (NEGATIVE); BENZODIAZEPINES SCREEN URINE NEGATIVE (NEGATIVE); CANNABINOID SCREEN, URINE NEGATIVE (NEGATIVE); COCAINE SCREEN URINE POSITIVE (NEGATIVE); METHADONE STAT NEGATIVE (NEGATIVE); OPIATE SCREEN URINE NEGATIVE (NEGATIVE); OXYCODONE STAT NEGATIVE (NEGATIVE); PROPOXYPHENE STAT NEGATIVE (NEGATIVE); PROTHROMBIN TIME PATIENT 13.1 SEC (12.2-14.7); TRICYCLIC ANTIDEPRESSANTS SCRE NEGATIVE (NEGATIVE)
[2021-11-25 09:12] LABS: BILIRUBIN,TOTAL 0.4 MG/DL (0.1-1.0); CALCIUM 8.8 MG/DL (8.5-10.1); CREATININE SERUM 0.9 MG/DL (0.60-1.30); MAGNESIUM 1.9 MG/DL (1.6-2.4); POTASSIUM 3.3 MMOL/L (3.6-5.0)
[2021-11-25 09:13] LABS: ALBUMIN 4.4 GM/DL (3.2-4.5)
[2021-11-25] MEDS ORDERED: ACETAMINOPHEN 500 MG TAB (TYLENOL) PO ONE (09:45)
[2021-11-25] MEDS ORDERED: IPRA3AMP31 IH (10:56)
[2021-11-25 11:06] VITALS: BP 138/84
== END 2021-11-25 11:07 | disposition home or self-care (01) ==
LOC: EDUNIT# 08:17 → ER FS 08:19
DX: J44.1 Chronic obstructive pulmonary disease with (acute) exacerbation (principal); M79.89 Other specified soft tissue disorders; I10 Essential (primary) hypertension; F17.210 Nicotine dependence, cigarettes, uncomplicated; Z79.899 Other long term (current) drug therapy; Z28.310 Unvaccinated for COVID-19
CPT/HCPCS: 36415; 71045; 80053; 80306; 81000; 83690; 83735; 83874; 83880; 84484; 85025; 85610; 85730; 93005